=== PATIENT | male | born 1980 | race Two or more races ===

== ENCOUNTER 2018-06-02 00:40 | Emergency (ER) | payer OTHER ==
[2018-06-02 01:18] VITALS: BP 121/77; PULSE 81; TEMP 99; BMI 45.3
--- NOTE | 2018-06-02 01:29 | PDOC ---
History of Present Illness - General Chief Complaint: Diarrhea Stated Complaint: ABDOMINAL PAIN Time Seen by Provider: 06/02/18 01:28 History Source: Patient Exam Limitations: No Limitations - History of Present Illness Initial Comments: 06/02/18 01:52 38 year old male with PMH HTN, DM BIBA to ED for generalized abdominal pain. He stated while lying down in bed around 1130 PM he felt 9/10 abdominal pain, nonradiating, no alleviating or aggravating factors. He stated his pain was associated with 1 episode of diarrhea, loose and watery, as well as nausea. He stated the pain self resolved once arriving to the Emergency Department. He denied fever, chills, vomiting, chest pain, shortness of breath, cough, blood in stool. Past History - Past Medical History Allergies/Adverse Reactions: Allergies Allergy/AdvReac Type Severity Reaction Status Date / Time No Known Allergies Allergy Verified 06/02/18 01:18 Home Medications: Ambulatory Orders Amlodipine Besylate [Norvasc -] 5 mg PO DAILY #10 tablet 04/19/16 Ibuprofen [Motrin -] 600 mg PO TID #21 tablet 04/19/16 Ondansetron [Zofran -] 4 mg PO BID #14 tablet 04/19/16 metFORMIN HCL [Glucophage -] 500 mg PO BID #14 tablet 04/19/16 COPD: No Diabetes: Yes HTN: Yes Hypercholesterolemia: Yes - Suicide/Smoking/Psychosocial Hx Smoking History: Never smoked Have you smoked in the past 12 months: No Information on smoking cessation initiated: No Hx Alcohol Use: No Drug/Substance Use Hx: No Substance Use Type: None Review of Systems - Review of Systems Able to Perform ROS?: Yes Constitutional: No: Chills, Fever HEENTM: No: Ear Pain, Throat Pain Respiratory: No: Cough, Shortness of Breath Cardiac (ROS): No: Chest Pain, Palpitations ABD/GI: Yes: Diarrhea, Nausea. No: Rectal Bleeding, Vomiting : No: Dysuria, Hematuria Neurological: No: Headache, Numbness, Tingling, Weakness *Physical Exam - Vital Signs Last Vital Signs Temp Pulse Resp BP Pulse Ox 99.0 F 81 19 121/77 97 06/02/18 00:40 06/02/18 00:40 06/02/18 00:40 06/02/18 00:40 06/02/18 00:40 - Physical Exam Comments: 06/02/18 01:57 Constitutional: well developed, well nourished. HEENT: head is normocephalic, atraumatic. EOMI. PERRLA. Neck: supple. full ROM. Heart: regular rhythm. no murmurs. Lungs: clear to auscultation bilaterally. Abdomen: soft, nontender. normal bowel sounds. no rebound, no guarding. Extremities: peripheral pulses intact and equal. Neurological: CN2-12 grossly intact. Moves all four extremities. Psych: awake, alert, orientedx3. follows commands. answers questions appropriately. Medical Decision Making - Medical Decision Making 06/02/18 01:58 38 year old male with PMH HTN, DM BIBA to ED for abdominal pain associated with nausea and 1 episode of diarrhea that self resovled by time the patient arrived to the ED. Initial Vital Signs Temp Pulse Resp BP Pulse Ox 99.0 F 81 19 121/77 97 06/02/18 00:40 06/02/18 00:40 06/02/18 00:40 06/02/18 00:40 06/02/18 00:40 Afebrile. No tachycardia. No tachypnea. No hypotension. No hypoxia on room air. Abdominal examination - soft and nontender. no rebound. no guarding. No imaging or lab work indicated at this time. Pt informed of return precautions. Pt informed to follow up with PCP. Pt will be discharged. *DC/Admit/Observation/Transfer Diagnosis at time of Disposition: Abdominal pain - Discharge Dispostion Disposition: HOME Condition at time of disposition: Stable Decision to Admit order: No - Referrals - Patient Instructions Printed Discharge Instructions: DI for Abdominal Pain-Adult Additional Instructions: You were seen today for abdominal pain that resolved on its own. Your examination was normal. At this time you do not need imaging or lab work. Return to the Emergency Department for increasing pain, vomiting, pain moving to the right lower part of your abdomen, blood in stool, fever, chest pain, shortness of breath, lightheadedness like you may pass out, or any other new, worsening or concerning symptoms. Follow up with your primary care doctor in 1- 2 days, call their office in the morning and make an appointment for as soon as available. Your care is not complete until you follow up. - Post Discharge Activity Forms/Work/School Notes: Back to Work
== END 2018-06-02 02:11 | disposition home or self-care (01) ==
LOC: JER 00:40
DX: R10.84 Generalized abdominal pain (principal); I10 Essential (primary) hypertension; E11.9 Type 2 diabetes mellitus without complications; Z79.84 Long term (current) use of oral hypoglycemic drugs; E78.00 Pure hypercholesterolemia, unspecified
CPT/HCPCS: 99281-25

== ENCOUNTER 2018-07-19 23:17 | Emergency (ER) | payer OTHER ==
[2018-07-19 23:27] VITALS: BP 156/82; PULSE 140; TEMP 98.9; BMI 41.1
--- NOTE | 2018-07-19 23:54 | PDOC ---
History of Present Illness <Rosenda Gould - Last Filed: 07/20/18 03:16> - History of Present Illness Initial Comments: 07/19/18 23:53 Mr. Paz is a 38 yo male w/ pmh of HTN, HLD, DM who presents for evaluation of 2-3 day history of body aches, headache, fever, productive brown cough, and chills. Patient reports his was sick with similar symptoms 3 days ago. The patient denies chest pain, shortness of breath, and dizziness. Denies nausea , vomit, diarrhea and constipation. Denies dysuria, frequency, urgency and hematuria. <Bam Copeland - Last Filed: 07/20/18 03:23> - General Chief Complaint: Cold Symptoms Stated Complaint: SICK Time Seen by Provider: 07/19/18 23:53 Past History <Rosenda Gould - Last Filed: 07/20/18 03:16> - Past Medical History COPD: No Diabetes: Yes HTN: Yes Hypercholesterolemia: Yes - Immunization History Immunization Up to Date: Yes - Suicide/Smoking/Psychosocial Hx Smoking History: Never smoked Have you smoked in the past 12 months: No Information on smoking cessation initiated: No Hx Alcohol Use: No Drug/Substance Use Hx: No Substance Use Type: None <Bam Copeland - Last Filed: 07/20/18 03:23> - Past Medical History Allergies/Adverse Reactions: Allergies Allergy/AdvReac Type Severity Reaction Status Date / Time No Known Allergies Allergy Verified 07/19/18 23:26 Home Medications: Ambulatory Orders Amlodipine Besylate [Norvasc -] 5 mg PO DAILY #10 tablet 04/19/16 Ibuprofen [Motrin -] 600 mg PO TID #21 tablet 04/19/16 Ondansetron [Zofran -] 4 mg PO BID #14 tablet 04/19/16 metFORMIN HCL [Glucophage -] 500 mg PO BID #14 tablet 04/19/16 Oseltamivir Phosphate [Tamiflu -] 75 mg PO DAILY #10 capsule 07/20/18 Review of Systems - Review of Systems Comments:: 07/19/18 23:53 GENERAL/CONSTITUTIONAL: +Fever/chills as described with body aches. No weakness. HEAD, EYES, EARS, NOSE AND THROAT: No change in vision. No ear pain or discharge. No sore throat. CARDIOVASCULAR: No chest pain or shortness of breath RESPIRATORY: +Cough productive of brown sputum. No wheezing, or hemoptysis. GASTROINTESTINAL: No nausea, vomiting, diarrhea or constipation. GENITOURINARY: No dysuria, frequency, or change in urination. MUSCULOSKELETAL: No joint or muscle swelling or pain. No neck or back pain. SKIN: No rash NEUROLOGIC: No headache, vertigo, loss of consciousness, or change in strength/ sensation. ENDOCRINE: No increased thirst. No abnormal weight change HEMATOLOGIC/LYMPHATIC: No anemia, easy bleeding, or history of blood clots. ALLERGIC/IMMUNOLOGIC: No hives or skin allergy. <Bam Copeland - Last Filed: 07/20/18 03:23> *Physical Exam - Vital Signs Last Vital Signs Temp Pulse Resp BP Pulse Ox 98.9 F 140 H 16 156/82 96 07/19/18 23:24 07/19/18 23:24 07/19/18 23:24 07/19/18 23:24 07/19/18 23:24 <Rosenda Gould - Last Filed: 07/20/18 03:16> - Vital Signs Last Vital Signs Temp Pulse Resp BP Pulse Ox 98.9 F 140 H 16 156/82 96 07/19/18 23:24 07/19/18 23:24 07/19/18 23:24 07/19/18 23:24 07/19/18 23:24 - Physical Exam Comments: 07/19/18 23:53 GENERAL: +Patient obese. Awake, alert, and fully oriented, in no acute distress HEAD: No signs of trauma, normocephalic, atraumatic EYES: PERRLA, EOMI, sclera anicteric, conjunctiva clear ENT: Auricles normal inspection, hearing grossly normal, nares patent, oropharynx clear without exudates. Moist mucosa NECK: Normal ROM, supple, no lymphadenopathy, JVD, or masses LUNGS: No distress, speaks full sentences, clear to auscultation bilaterally HEART: Regular rate and rhythm, normal S1 and S2, no murmurs, rubs or gallops, peripheral pulses normal and equal bilaterally. ABDOMEN: Soft, nontender, normoactive bowel sounds. No guarding, no rebound. No masses EXTREMITIES: Normal inspection, Normal range of motion, no edema. No clubbing or cyanosis. NEUROLOGICAL: Cranial nerves II through XII grossly intact. Normal speech, normal gait, no focal sensorimotor deficits SKIN: Warm, Dry, normal turgor, no rashes or lesions noted. <Bam Copeland - Last Filed: 07/20/18 03:23> Moderate Sedation - Procedure Monitoring Vital Signs: Procedure Monitoring Vital Signs Temperature 98.9 F 07/19/18 23:24 Pulse Rate 140 H 07/19/18 23:24 Respiratory Rate 16 07/19/18 23:24 Blood Pressure 156/82 07/19/18 23:24 O2 Sat by Pulse Oximetry (%) 96 07/19/18 23:24 <Rosenda Gould - Last Filed: 07/20/18 03:16> - Procedure Monitoring Vital Signs: Procedure Monitoring Vital Signs Temperature 98.9 F 07/19/18 23:24 Pulse Rate 140 H 07/19/18 23:24 Respiratory Rate 16 07/19/18 23:24 Blood Pressure 156/82 07/19/18 23:24 O2 Sat by Pulse Oximetry (%) 96 07/19/18 23:24 <Bam Copeland - Last Filed: 07/20/18 03:23> ED Treatment Course - LABORATORY CBC & Chemistry Diagram: 07/20/18 00:40 07/20/18 00:40 - ADDITIONAL ORDERS Additional order review: Laboratory Results 07/20/18 07/20/18 01:53 00:40 Sodium 134 L Potassium 4.0 Chloride 101 Carbon Dioxide 23 Anion Gap 10 BUN 11 Creatinine 1.1 Creat Clearance w eGFR > 60 Random Glucose 404 H* Calcium 7.8 L Total Bilirubin 0.6 AST 41 H ALT 82 H Alkaline Phosphatase 141 H Total Protein 7.2 Albumin 3.6 Urine Color Straw Urine Appearance Clear Urine pH 7.0 Ur Specific [place] 1.028 Urine Protein 2+ H Urine Glucose (UA) 3+ H Urine Ketones Negative Urine Blood Negative Urine Nitrite Negative Urine Bilirubin Negative Urine Urobilinogen 2.0 Ur Leukocyte Esterase Negative Urine WBC (Auto) <1 Urine RBC (Auto) 1 Urine Mucus Rare 07/20/18 00:40 RBC 4.96 MCV 88.4 MCHC 36.4 H RDW 13.0 MPV 9.3 Neutrophils % 76.8 Lymphocytes % 15.4 D Monocytes % 6.9 Eosinophils % 0.3 D Basophils % 0.6 - Medications Given in the ED: ED Medications Discontinued Medications Generic Name Dose Route Start Last Admin Trade Name Cherelle PRN Reason Stop Dose Admin Acetaminophen 1,000 mg 07/20/18 01:43 07/20/18 02:01 Ofirmev Injection - IVPB 07/20/18 01:44 1,000 mg ONCE ONE Administration Sodium Chloride 1,000 mls @ 1,000 mls/hr 07/20/18 00:00 07/20/18 00:57 Normal Saline - IV 07/20/18 00:59 1,000 mls/hr ASDIR STA Administration Insulin Human Regular 6 units 07/20/18 01:31 07/20/18 02:01 Novolin R Vial *For Ivpush Or Iv Drip Only* IVPUSH 07/20/18 01:32 6 units ONCE ONE Administration Metoclopramide HCl 10 mg 07/20/18 00:00 07/20/18 00:57 Reglan Injection - IVPUSH 07/20/18 00:01 10 mg ONCE ONE Administration Oseltamivir Phosphate 75 mg 07/20/18 01:27 07/20/18 02:01 Tamiflu - PO 07/20/18 01:28 75 mg ONCE ONE Administration Sodium Chloride 1,000 ml 07/20/18 01:44 07/20/18 02:02 Normal Saline - IV 07/20/18 01:45 1,000 ml ONCE ONE Administration <Rosenda Gould - Last Filed: 07/20/18 03:16> - LABORATORY CBC & Chemistry Diagram: 07/20/18 00:40 07/20/18 00:40 <Bam Copeland - Last Filed: 07/20/18 03:23> Medical Decision Making - Medical Decision Making 07/20/18 03:19 Mr. Paz is a 38 yo male w/ pmh as described who presents for evaluation of likely viral symptoms as described. Patient workup started with CBC/CMP/flu for evaluation of illness. Patient found to be flu positive with elevated BGM as below. Patient given fluids, tamiflu, and insulin with repeat BGM decreased appropriately. Patient improved and discharging to home for further outpatient follow-up. Laboratory Results - last 24 hr 07/20/18 07/20/18 07/20/18 00:40 00:40 00:45 WBC 8.7 RBC 4.96 Hgb 15.9 Hct 43.8 MCV 88.4 MCH 32.1 MCHC 36.4 H RDW 13.0 Plt Count 235 MPV 9.3 Absolute Neuts (auto) 6.7 Neutrophils % 76.8 Lymphocytes % 15.4 D Monocytes % 6.9 Eosinophils % 0.3 D Basophils % 0.6 Nucleated RBC % 0 Sodium 134 L Potassium 4.0 Chloride 101 Carbon Dioxide 23 Anion Gap 10 BUN 11 Creatinine 1.1 Creat Clearance w eGFR > 60 Random Glucose 404 H* Calcium 7.8 L Total Bilirubin 0.6 AST 41 H ALT 82 H Alkaline Phosphatase 141 H Total Protein 7.2 Albumin 3.6 Urine Color Urine Appearance Urine pH Ur Specific [place] Urine Protein Urine Glucose (UA) Urine Ketones Urine Blood Urine Nitrite Urine Bilirubin Urine Urobilinogen Ur Leukocyte Esterase Urine WBC (Auto) Urine RBC (Auto) Urine Mucus Influenza A (Rapid) Positive A Influenza B (Rapid) Negative 07/20/18 01:53 WBC RBC Hgb Hct MCV MCH MCHC RDW Plt Count MPV Absolute Neuts (auto) Neutrophils % Lymphocytes % Monocytes % Eosinophils % Basophils % Nucleated RBC % Sodium Potassium Chloride Carbon Dioxide Anion Gap BUN Creatinine Creat Clearance w eGFR Random Glucose Calcium Total Bilirubin AST ALT Alkaline Phosphatase Total Protein Albumin Urine Color Straw Urine Appearance Clear Urine pH 7.0 Ur Specific [place] 1.028 Urine Protein 2+ H Urine Glucose (UA) 3+ H Urine Ketones Negative Urine Blood Negative Urine Nitrite Negative Urine Bilirubin Negative Urine Urobilinogen 2.0 Ur Leukocyte Esterase Negative Urine WBC (Auto) <1 Urine RBC (Auto) 1 Urine Mucus Rare Influenza A (Rapid) Influenza B (Rapid) 07/20/18 03:21 <Bam Copeland - Last Filed: 07/20/18 03:23> *DC/Admit/Observation/Transfer - Discharge Dispostion Decision to Admit order: No <Rosenda Gould - Last Filed: 07/20/18 03:16> <Bam Copeland - Last Filed: 07/20/18 03:23> Diagnosis at time of Disposition: Influenza, Influenza A - Discharge Dispostion Disposition: HOME Condition at time of disposition: Improved - Prescriptions Prescriptions: Oseltamivir Phosphate [Tamiflu -] 75 mg PO DAILY #10 capsule - Referrals Referrals: Wang Zhao MD [Primary Care Provider] - - Patient Instructions Printed Discharge Instructions: Influenza Additional Instructions: You were evaluated today in the ER for your symptoms and found to have flu type A. A prescription has been called to your pharmacy. Take all medications as proscribed. Follow-up with primary care provider for further evaluation later this week. Return to ER if any further concerning symptoms. - Post Discharge Activity Forms/Work/School Notes: Back to Work
[2018-07-20] MEDS ORDERED: SODIUM CHLORIDE 1,000 ML IV STA
[2018-07-20] MEDS ORDERED: METOCLOPRAMIDE HCL INJECTION 10 MG/2 ML VIAL IVPUSH ONE
[2018-07-20] MEDS ORDERED: METOCLOPRAMIDE HCL INJECTION 10 MG/2 ML VIAL ONE (00:55)
[2018-07-20 01:04] LABS: BASO % 0.6 % (0-2.0); EOS % 0.3 % (0-4.5); HEMATOCRIT 43.8 % (35.4-49); HEMOGLOBIN 15.9 GM/dL (11.7-16.9); LYMPH % 15.4 % (8-40); MCH 32.1 pg (25.7-33.7); MCHC 36.4 g/dl (32.0-35.9); MEAN CELL VOLUME 88.4 fl (80-96); MEAN PLT VOLUME 9.3 fl (7.5-11.1); MONO % 6.9 % (3.8-10.2); NEUT % 76.8 % (42.8-82.8); PLATELET COUNT 235 K/MM3 (134-434); RBC 4.96 M/mm3 (4.00-5.60); WHITE BLOOD COUNT 8.7 K/mm3 (4.0-10.0)
--- NOTE | 2018-07-20 01:25 | PDOC ---
Attending Attestation - HPI HPI: 07/20/18 01:31 The patient is a 38 year old male with a significant past medical history of diabetes, HTN and HLD who presents to the ED with cold like symptoms for several days. Patient reports several days of body aches and headaches. He states he also developed nausea and vomiting. Patient notes his also has similar symptoms at home. Denies fever or chills. Denies abdominal pain or diarrhea. Denies chest pain or shortness of breath. Denies any other symptoms. <Stuart Miller - Last Filed: 07/20/18 01:30> - Resident Resident Name: Bam Copeland - ED Attending Attestation I have performed the following: I have examined & evaluated the patient, The case was reviewed & discussed with the resident, I agree w/resident's findings & plan - Physicial Exam PE: 07/20/18 01:47 Agree with resident exam. Pt has a fever and he is dehydrated. He has been noncomplaint with his DM meds, as he states that it has been making him feel nauseous, so he has been noncomplaint with it. - Medical Decision Making 07/20/18 01:30 Pt is tachy and he will be hydrated after 1L HR is 128BPM; down from the 140 that he came in with. 07/20/18 01:48 He will be given another L and orfirmev. UA pending, so that we can look for ketone 07/20/18 01:49 CXR normal appearance Pt has Flu A 07/20/18 03:14 Pt is sleeping comfortably; HR is 85; afebrile. HGe received the 2nd L bolus. After repeat FS he will go home. Acetone negative <Rosenda Gould - Last Filed: 07/20/18 03:15> Attestations - Attestations 07/20/18 01:31 Documentation prepared by Stuart Miller, acting as medical billing instructor for Rosenda Gould MD <Stuart Miller - Last Filed: 07/20/18 01:30>
[2018-07-20] MEDS ORDERED: OSELTAMIVIR PHOSPHATE 75 MG CAPSULE PO ONE (01:27)
[2018-07-20 01:29] LABS: ALBUMIN 3.6 g/dl (3.4-5.0); ALK PHOS 141 U/L (45-117); ANION GAP 10 MMOL/L (8-16); BILIRUBIN,TOTAL 0.6 mg/dL (0.2-1); BLOOD UREA NITROGEN 11 mg/dL (7-18); CALCIUM 7.8 mg/dL (8.5-10.1); CHLORIDE 101 mmol/L (98-107); CO2 23 mmol/L (21-32); CREATININE 1.1 mg/dL (0.55-1.3); SGOT/AST 41 U/L (15-37); SGPT/ALT 82 U/L (13-61); SODIUM 134 mmol/L (136-145); TOT PROT 7.2 g/dl (6.4-8.2)
[2018-07-20 01:30] LABS: GLUCOSE,RANDOM 404 mg/dL (74-106)
[2018-07-20] MEDS ORDERED: INSULIN REGULAR HUMAN 100 UNITS/ML *VIAL IVPUSH ONE (01:31)
[2018-07-20] MEDS ORDERED: ACETAMINOPHEN 1000 MG/100 ML VIAL (NON FORMULARY) IVPB ONE (01:43)
[2018-07-20] MEDS ORDERED: SODIUM CHLORIDE 0.9% 500 ML INFUS.BAG IV ONE (01:44)
[2018-07-20] MEDS ORDERED: ACETAMINOPHEN INJECTION 100 ML IVPB ONE (01:51)
[2018-07-20] MEDS ORDERED: OSELTAMIVIR PHOSPHATE 75 MG CAPSULE ONE (01:51)
[2018-07-20] MEDS ORDERED: INSULIN REGULAR HUMAN 100 UNITS/ML *VIAL ONE (01:52)
[2018-07-20 02:17] LABS: URINE APPEARANCE CLEAR; URINE BILIRUBIN NEGATIVE (<2.0 mg/dL); URINE COLOR STRAW; URINE GLUCOSE (UA) 3+ (NEGATIVE); URINE KETONE NEGATIVE (NEGATIVE); URINE LEUK ESTERASE NEGATIVE (NEGATIVE); URINE NITRITE NEGATIVE (NEGATIVE); URINE PROTEIN 2+ (NEGATIVE)
[2018-07-20 02:35] LABS: URINE MUCUS RARE
== END 2018-07-20 03:43 | disposition home or self-care (01) ==
LOC: JER 23:17
PROC: 3E033NZ Introduction of Analgesics, Hypnotics, Sedatives into Peripheral Vein, Percutaneous Approach (ICD-10-PCS; principal; 2018-07-19)
PROC: 3E033VG Introduction of Insulin into Peripheral Vein, Percutaneous Approach (ICD-10-PCS; 2018-07-19)
PROC: 3E033GC Introduction of Other Therapeutic Substance into Peripheral Vein, Percutaneous Approach (ICD-10-PCS; 2018-07-19)
PROC: 3E0337Z Introduction of Electrolytic and Water Balance Substance into Peripheral Vein, Percutaneous Approach (ICD-10-PCS; 2018-07-19)
DX: J09.X2 Influenza due to identified novel influenza A virus with other respiratory manifestations (principal); I10 Essential (primary) hypertension; E78.5 Hyperlipidemia, unspecified; E11.9 Type 2 diabetes mellitus without complications
CPT/HCPCS: 36415; 71046-TC-FY; 80053; 81003; 81015; 82962; 85025; 87804; 99281-25; J0131; J7030

== ENCOUNTER 2019-07-13 15:02 | Emergency (ER) | payer OTHER ==
[2019-07-13 15:33] VITALS: TEMP 98.2; BMI 40.3
--- NOTE | 2019-07-13 15:49 | PDOC ---
History of Present Illness - General Chief Complaint: Pain Stated Complaint: STOMACH PAIN Time Seen by Provider: 07/13/19 15:48 - History of Present Illness Initial Comments: 07/13/19 15:49 39 yo M NIDDM HTN and HLD, not taking any medications, presenting with epigastric abdominal pain. States that it is 10/10, started this morning around 0900 after eating a roldan, egg, and cheese sandwich. States that he has never had pain like this before. Notes that he has been drinking more alcohol than normal over the past few months, but states that this is only 4-5 drinks per month. Denies CP, SOB, fevers/chills, constipation/diarrhea. Endorses nausea with one episode of nbnb vomiting at home, had another episode in the ED. Past History - Past Medical History Allergies/Adverse Reactions: Allergies Allergy/AdvReac Type Severity Reaction Status Date / Time No Known Allergies Allergy Verified 07/13/19 15:30 Home Medications: Ambulatory Orders Famotidine [Pepcid] 20 mg PO BID #12 tablet 07/13/19 COPD: No Diabetes: Yes HTN: Yes Hypercholesterolemia: Yes - Immunization History Immunization Up to Date: Yes - Psycho Social/Smoking Cessation Hx Smoking History: Never smoked Have you smoked in the past 12 months: No Information on smoking cessation initiated: No Hx Alcohol Use: No Drug/Substance Use Hx: No Substance Use Type: None Review of Systems - Review of Systems Comments:: 07/13/19 16:46 GENERAL/CONSTITUTIONAL: No fever or chills. No weakness. HEAD, EYES, EARS, NOSE AND THROAT: No change in vision. No ear pain or discharge. No sore throat. CARDIOVASCULAR: No chest pain or shortness of breath. RESPIRATORY: No cough, wheezing, or hemoptysis. GASTROINTESTINAL: Nausea with vomiting. No diarrhea or constipation. Epigastric abdominal pain. GENITOURINARY: No dysuria, frequency, or change in urination. MUSCULOSKELETAL: No joint or muscle swelling or pain. No neck or back pain. SKIN: No rash NEUROLOGIC: No headache, vertigo, loss of consciousness, or change in strength/ sensation. ENDOCRINE: No increased thirst. No abnormal weight change. HEMATOLOGIC/LYMPHATIC: No anemia, easy bleeding, or history of blood clots. ALLERGIC/IMMUNOLOGIC: No hives or skin allergy *Physical Exam - Vital Signs Last Vital Signs Temp Pulse Resp BP Pulse Ox 98.2 F 82 18 97/79 100 07/13/19 15:30 07/13/19 15:30 07/13/19 15:30 07/13/19 15:30 07/13/19 15:30 - Physical Exam 07/13/19 16:47 Gen: well-developed, well-nourished, in distress Neuro: AAOX4, CN II-XII intact, FTN intact, EOMI, PERRLA, 5/5 strength, SILT HEENT: atraumatic, normocephalic, dry mucous membranes Neck: trachea midline, supple CV: regular rate, regular rhythm, no murmurs, rubs, or gallops Pulm: CTA b/l, no wheezing Abd: soft, non-distended, epigastric tenderness, negative Rodriguez's MSK: full ROM, intact pulses Extr: no edema, no deformities Skin: warm, dry ED Treatment Course - LABORATORY CBC & Chemistry Diagram: 07/13/19 16:16 07/13/19 16:16 Medical Decision Making - Medical Decision Making 07/13/19 15:42 Concern for pancreatitis v cholecystitis v gastritis. - CBC, CMP - EKG, trop, CXR - lipase - Zofran, Pepcid, Ofirmev - RUQ US 07/13/19 16:42 EKG normal sinus with sinus arrhythmia at 80 bpm, possible LVH. 07/13/19 17:19 WBC 13.7, lipase 88. 07/13/19 17:59 CXR unchanged from prior 07/13/19 18:[address] Vo. Discharge - Discharge Information Problems reviewed: Yes Clinical Impression/Diagnosis: Gastritis Qualifiers: Gastritis type: unspecified gastritis Chronicity: acute Gastritis bleeding: presence of bleeding unspecified Qualified Code(s): K29.00 - Acute gastritis without bleeding Condition: Stable Disposition: HOME - Additional Discharge Information Prescriptions: Famotidine [Pepcid] 20 mg PO BID #12 tablet - Follow up/Referral Referrals: [facility] [place] [Provider Group] Leland Noland MD [Staff Physician] - - Patient Discharge Instructions Patient Printed Discharge Instructions: DI for Gastritis Additional Instructions: Usted fue evaluada por dolor de estomago. Michelle niveles de raisa estaban normales. Campos sonografia estaba normal. Es posible que campos dolor fue causado por un gastritis jeanne. Por favor ve a campos doctor de cabezera lo mas pronto posible , en 2-3 [place]. Tambien es importante que usted ve a un gastroenterologo - un doctor de los intestinos. Es posible que van a querer un endoscopia. Estamos dando un referido para un gastroenterologo. Hermann saulo para verlo lo mas pronto posible. Print Language: SPA - Post Discharge Activity
[2019-07-13] MEDS ORDERED: FAMOTIDINE 20 MG/50 ML IVPB 20 MG/50 ML MG IVPB ONE ×2 (15:58→16:15)
[2019-07-13] MEDS ORDERED: ONDANSETRON 4 MG/2 ML VIAL IVPUSH ONE (15:58)
[2019-07-13] MEDS ORDERED: SODIUM CHLORIDE 0.9% 500 ML INFUS.BAG IV ONE ×2 (15:58→16:42)
[2019-07-13] MEDS ORDERED: ONDANSETRON 4 MG/2 ML VIAL ONE (16:15)
--- NOTE | 2019-07-13 16:32 | PDOC ---
Documentation entered by Stuart Miller SCRIBE, acting as scribe for Nancy Harper DO. Nancy Harper DO: This documentation has been prepared by the Angela yi Andrys, SCRIBE, under my direction and personally reviewed by me in its entirety. I confirm that the documentation accurately reflects all work, treatment, procedures, and medical decision making performed by me. Attending Attestation - Resident Resident Name: Maggi Bruce - ED Attending Attestation I have performed the following: I have examined & evaluated the patient, The case was reviewed & discussed with the resident, I agree w/resident's findings & plan, Exceptions are as noted - HPI HPI: 07/13/19 16:18 The patient is a 39 year old male with significant past medical history of HTN, HLD and DM (non compliant with medication) who presents to the ED with epigastric pain since earlier today. Patient reports a sudden onset of epigastric pain around 9am this morning after eating a roldan, egg, and cheese sandwich. Patient also reports 1 episode of vomiting earlier today. Patient reports increased intake of alcohol recently. Denies similar symptoms in the past. Denies chest pain or shortness of breath. Denies nausea or diarrhea. Denies any other symptoms. - Physicial Exam PE: 07/13/19 16:18 Constitutional: + Obese. Awake, alert, oriented. No acute distress. Head: Normocephalic. Atraumatic Eyes: PERRL. EOMI. Conjunctivae are not pale. ENT: Mucous membranes are moist and intact. Posterior pharynx without exudates or erythema. Uvula midline. Neck: Supple. Full ROM. No lymphadenopathy. Cardiovascular: Regular rate. Regular rhythm. S1, S2 regular. Distal pulses are 2+ and symmetric. Pulmonary/Chest: No evidence of respiratory distress. Clear to auscultation bilaterally No wheezing, rales or rhonchi. Abdominal: + Actively vomiting bilious vomit. Periumbilical epigastric tenderness. Soft and non-distended. No rebound, guarding or rigidity. No organomegaly. No palpable masses. Good bowel sounds. No [place] sign. Back: No CVA tenderness. Musculoskeletal: No edema. No cyanosis. No clubbing. Full range of motion in all extremities. Nocalf tenderness. Radial/pedal pulses are intact and 2+ bilaterally Skin: Skin is warm and dry. No petechiae. No purpura. Neurological: Alert and oriented to person, place, and time. Cranial nerves II -XII are grossly intact. Normal speech. Strength is grossly symmetric. No sensory deficits. Psychiatric: Good eye contact. Normal interaction, affect and behavior. - Medical Decision Making 07/13/19 16:28 a/p: 39yo male with hx of htn, hld, dm and recent etoh use with n/v and epigastric abd pain -pt with active biliary vomiting during exam -epigastric ttp -concern for gallstones- bedside ultrasound with the resident shows sludge, no pericholecystic fluid, no gbw thickening -concern for pancreatitis, gi virus, gastritis, pud -less suspicion for acs- no cp/sob -will send labs, ivf hydraiton, zofran, formal ultrasound, lipase -will monitor and reassess 07/13/19 16:45 labs pending pt pending ultrasound will monitor
[2019-07-13] MEDS ORDERED: ACETAMINOPHEN 1000 MG/100 ML VIAL (NON FORMULARY) IVPB ONE (16:41)
[2019-07-13 16:50] LABS: BASO % 0.5 % (0-2.0); EOS % 0.4 % (0-4.5); HEMATOCRIT 47.6 % (35.4-49); HEMOGLOBIN 16.1 GM/dL (11.7-16.9); LYMPH % 11.9 % (8-40); MCH 30.8 pg (25.7-33.7); MCHC 33.8 g/dl (32.0-35.9); MEAN PLT VOLUME 9.2 fl (7.5-11.1); MONO % 3.2 % (3.8-10.2); PLATELET COUNT 307 K/MM3 (134-434); RBC 5.24 M/mm3 (4.00-5.60); RDW 13.2 % (11.9-15.9); WHITE BLOOD COUNT 13.7 K/mm3 (4.0-10.0)
[2019-07-13] MEDS ORDERED: ACETAMINOPHEN INJECTION 100 ML IVPB ONE (17:03)
[2019-07-13 17:26] LABS: ALBUMIN 4.2 g/dl (3.4-5.0); ALK PHOS 129 U/L (45-117); ANION GAP 8 MMOL/L (8-16); BILIRUBIN,TOTAL 0.7 mg/dL (0.2-1); BLOOD UREA NITROGEN 17.7 mg/dL (7-18); CHLORIDE 102 mmol/L (98-107); CO2 26 mmol/L (21-32); CREATININE 0.8 mg/dL (0.55-1.3); GLUCOSE,RANDOM 255 mg/dL (74-106); POTASSIUM 3.7 mmol/L (3.5-5.1); SGOT/AST 23 U/L (15-37); SGPT/ALT 54 U/L (13-61); SODIUM 136 mmol/L (136-145); TOT PROT 8.1 g/dl (6.4-8.2)
[2019-07-13] MEDS ORDERED: KETOROLAC TROMETHAMINE 30 MG/1 ML VIAL IVPUSH ONE (18:04)
[2019-07-13] MEDS ORDERED: KETOROLAC TROMETHAMINE 15 MG/ML VIAL ONE (18:14)
--- NOTE | 2019-07-13 19:34 | PDOC ---
*Physical Exam - Vital Signs Last Vital Signs Temp Pulse Resp BP Pulse Ox 98.2 F 89 20 161/92 98 07/13/19 15:30 07/13/19 18:00 07/13/19 18:00 07/13/19 18:00 07/13/19 18:00 ED Treatment Course - LABORATORY CBC & Chemistry Diagram: 07/13/19 16:16 07/13/19 16:16 - ADDITIONAL ORDERS Additional order review: Laboratory Results 07/13/19 07/13/19 07/13/19 16:54 16:16 16:16 Sodium 136 Potassium 3.7 Chloride 102 Carbon Dioxide 26 Anion Gap 8 BUN 17.7 Creatinine 0.8 Est GFR (CKD-EPI)AfAm 131.34 Est GFR (CKD-EPI)NonAf 113.32 POC Glucometer 241 Random Glucose 255 H Calcium 9.0 Total Bilirubin 0.7 AST 23 ALT 54 Alkaline Phosphatase 129 H Creatine Kinase 116 Troponin I < 0.02 Total Protein 8.1 Albumin 4.2 Lipase 88 07/13/19 07/13/19 16:54 16:16 RBC 5.24 MCV 91.0 MCHC 33.8 RDW 13.2 MPV 9.2 Neutrophils % 84.0 H Lymphocytes % 11.9 D Monocytes % 3.2 L Eosinophils % 0.4 Basophils % 0.5 POC Glucometer 241 - Medications Given in the ED: ED Medications Discontinued Medications Generic Name Dose Route Start Last Admin Trade Name Cherelle PRN Reason Stop Dose Admin Acetaminophen 1,000 mg 07/13/19 16:41 07/13/19 17:02 Ofirmev Injection - IVPB 07/13/19 16:42 1,000 mg ONCE ONE Administration Famotidine/Sodium Chloride 20 mg in 50 mls @ 100 mls/hr 07/13/19 15:58 16:05 Pepcid 20 Mg Premixed Ivpb - IVPB 07/13/19 16:27 100 mls/hr ONCE ONE Administration Ketorolac Tromethamine 15 mg 07/13/19 18:04 07/13/19 18:19 Toradol Injection - IVPUSH 07/13/19 18:05 15 mg ONCE ONE Administration Ondansetron HCl 4 mg 07/13/19 15:58 07/13/19 16:05 Zofran Injection IVPUSH 07/13/19 15:59 4 mg NOW ONE Administration Sodium Chloride 1,000 ml 07/13/19 15:58 07/13/19 16:10 Normal Saline - IV 07/13/19 15:59 1,000 ml ONCE ONE Administration Sodium Chloride 1,000 ml 07/13/19 16:42 07/13/19 17:02 Normal Saline - IV 07/13/19 16:43 1,000 ml ONCE ONE Administration Medical Decision Making - Medical Decision Making 07/13/19 19:35 39M w/hx fatty liver, HTN, DM p/w acute onset epigastric abdominal pain and vomiting. Lipase normal, CBC, CMP largely wnl. Differential includes biliary colic, cholecystitis, gastritis. Pending: US imaging read Dispo: Pending --- US - negative, no stones or signs of cholecystitis. Plan for discharge with GI follow up, Discharge - Discharge Information Problems reviewed: Yes Clinical Impression/Diagnosis: Gastritis Qualifiers: Gastritis type: unspecified gastritis Chronicity: acute Gastritis bleeding: presence of bleeding unspecified Qualified Code(s): K29.00 - Acute gastritis without bleeding Condition: Stable Disposition: HOME - Admission No - Additional Discharge Information Prescriptions: Famotidine [Pepcid] 20 mg PO BID #12 tablet - Follow up/Referral Referrals: Leland Noland MD [Staff Physician] - [facility] [place] [facility] [place] [Provider Group] - Patient Discharge Instructions Patient Printed Discharge Instructions: DI for Gastritis Additional Instructions: Usted fue evaluada por dolor de estomago. Michelle niveles de raisa estaban normales. [place] sonografia estaba normal. Es posible que [place] dolor fue causado por un gastritis jeanne. Por favor ve a [place] doctor de cabezera lo mas pronto posible , en 2-3 canada. Tambien es importante que usted ve a un gastroenterologo - un doctor de los intestinos. Es posible que van a querer un endoscopia. Estamos dando un referido para un gastroenterologo. Hermann saulo para verlo lo mas pronto posible. Print Language: SPA - Post Discharge Activity
[2019-07-13 19:53] VITALS: BP 124/88; PULSE 105
--- NOTE | 2019-07-14 17:41 | EKG ---
Test Reason : Blood Pressure : / mmHG Vent. Rate : 080 BPM Atrial Rate : 080 BPM P-R Int : 168 ms QRS Dur : 108 ms QT Int : 362 ms P-R-T Axes : 018 -11 006 degrees QTc Int : 417 ms NORMAL SINUS RHYTHM WITH SINUS ARRHYTHMIA MODERATE VOLTAGE CRITERIA FOR LVH, MAY BE NORMAL VARIANT BORDERLINE ECG WHEN COMPARED WITH ECG OF 21-JUN-2017 23:45, NO SIGNIFICANT CHANGE WAS FOUND Confirmed by DEMOND IBRAHIM, LAURENT ([id number]) on 07/14/2019 5:41:02 PM Referred By: Confirmed By:LAURENT LAGOS MD
== END 2019-07-13 19:55 | disposition home or self-care (01) ==
LOC: JER 15:02
PROC: 3E0337Z Introduction of Electrolytic and Water Balance Substance into Peripheral Vein, Percutaneous Approach (ICD-10-PCS; principal; 2019-07-13)
PROC: 3E033GC Introduction of Other Therapeutic Substance into Peripheral Vein, Percutaneous Approach (ICD-10-PCS; 2019-07-13)
PROC: 3E0333Z Introduction of Anti-inflammatory into Peripheral Vein, Percutaneous Approach (ICD-10-PCS; 2019-07-13)
PROC: 3E033NZ Introduction of Analgesics, Hypnotics, Sedatives into Peripheral Vein, Percutaneous Approach (ICD-10-PCS; 2019-07-13)
DX: K29.00 Acute gastritis without bleeding (principal); I10 Essential (primary) hypertension; E78.00 Pure hypercholesterolemia, unspecified; E11.9 Type 2 diabetes mellitus without complications; E78.5 Hyperlipidemia, unspecified
CPT/HCPCS: 36415; 71046-TC-FY; 76705-TC; 80053; 82550; 82962; 83690; 84484; 85025; 93005; 93010; 99285-25; J0131

== ENCOUNTER 2020-04-19 09:46 | Emergency (ER) | payer OTHER ==
[2020-04-19 09:52] VITALS: BMI 44.2
--- OUTSIDE RECORDS SUMMARY | 2020-04-19 10:14 | XMS ---
:1980 Author Organization [facility] Care Team Providers Name Role Phone Menla, Tor Unavailable Unavailable Menla, Tor Unavailable Unavailable Menla, Tor Unavailable Unavailable Menla, Tor Unavailable Unavailable Menla, Tor Unavailable Unavailable Menla, Tor Unavailable Unavailable KAUR, MICHELLE Unavailable Unavailable Re-disclosure Warning The records that you are about to access may contain information from federally- assisted alcohol or drug abuse programs. If such information is present, then the following federally mandated warning applies: This information has been disclosed to you from records protected by federal confidentiality rules (42 CFR part 2). The federal rules prohibit you from making any further disclosure of this information unless further disclosure is expressly permitted by the written consent of the person to whom it pertains or as otherwise permitted by 42 CFR part 2. A general authorization for the release of medical or other information is NOT sufficient for this purpose. The Federal rules restrict any use of the information to criminally investigate or prosecute any alcohol or drug abuse patient.The records that you are about to access may contain highly sensitive health information, the redisclosure of which is protected by Article 27-F of the [facility] Public Health law. If you continue you may haveaccess to information: Regarding HIV / AIDS; Provided by facilities licensed or operated by the [facility] Office of Mental Health; or Provided by the [facility] Office for People With Developmental Disabilities. If such information is present, then the following [place] State mandated warning applies: This information has been disclosed to you from confidential records which are protected by state law. State law prohibits you from making any further disclosure of this information without the specific written consent of the person to whom it pertains, or as otherwise permitted by law. Any unauthorized further disclosure in violation of state law may result in a fine or care home sentence or both. A general authorization for the release of medical or other information is NOT sufficient authorization for further disclosure. Allergies and Adverse Reactions Type Description Substance Reaction Status Data Source(s ) Drug allergy Metformin HCl Metformin headache Active eCW3 ([facility]) Propensity to Propensity to Propensity to NEXTG EN ([facility] adverse reactions adverse reactions adverse reactions [facility] Medical (disorder) (disorder) (disorder) Center) Family History Family Member Family Member Family Member Date of Description Data Source(s) Name Gender Status Status Unknown Female Problem 11/29/2019 NEXTGEN ([facility] (finding) 12:00:00 AM [facility] EDT Center) Encounters Encounter Providers Location Date Indications Data Source(s ) Outpatient 03/08/2020 [facility] 03:25:00 Medical Center PM EDT Outpatient Attender: MICHELLE Hernandez 03/08/2020 [facility] COLTONAAdmitter: 03:06:00 Medical Ce nter MICHELLE PM EDT COLTONAReferrer: MICHELLE KAUR OutpatientOFFICE/ Attender: Tor [facility] 03/08/2020 NEX TGEN ([facility] OUTPATIENT VISIT, Menla 03:06:00 [facility] Medical [facility] PM EDT - Center) 03/08/2020 03:06:00 PM EDT Outpatient 03/08/2020 [facility] 12:00:00 Medical Center AM EDT Attender: [facility]S aint Menla 04:12:00 [facility]T - Center) 02/15/2020 04:12:00 PM EDT Attender: Tor [facility] 01/21/2020 NEXTGEN (S aint [place]la 03:14:00 [facility] PM EDT - Center) 01/21/2020 03:14:00 PM EDT Outpatient 01/20/2020 [facility] 12:34:00 Medical Center PM EDT Outpatient 01/20/2020 [facility] 12:00:00 Medical Center AM EDT Attender: Tor [address] [place] [address] 01/19/2020 NEXT (S aint Menla 02:09:00 [facility] EDT - Center) 01/19/2020 02:09:00 PM EDT Outpatient 12/21/2019 [facility] 12:14:00 [facility] PM EDT Outpatient Attender: MICHELLE Hernandez [facility] Medical Ce nter MICHELLE AM EDT MEJIAReferrer: MICHELLE KAUR OutpatientOFFICE/ Attender: Tor [facility] 12/21/2019 NEX TGEN ([facility] OUTPATIENT VISIT, Menla 11:21:00 [facility] EDT - Center) 12/21/2019 11:21:00 AM EDT Outpatient 12/21/2019 [facility] 12:00:00 [facility] AM EDT Outpatient Attender: MICHELLE Hernandez 12/07/2019 [facility] Chapeldmitter: 11:25:00 Medical Ce nter MICHELLE AM EDT MEJIAReferrer: MICHELLE KAUR OutpatientOFFICE/ Attender: Tor [address] [place] [address] 12/07/2019 NEX TGEN ([facility] OUTPATIENT VISIT, Menla 11:25:00 [facility] EDT - Center) 12/07/2019 11:25:00 AM EDT Outpatient 12/07/2019 [facility] 11:23:00 [facility] AM EDT Outpatient 12/07/2019 [facility] 12:00:00 [facility] AM EDT Outpatient 11/29/2019 [facility] 02:58:00 [facility] PM EDT Outpatient Attender: MICHELLE H 11/29[facility]00 Medical Ce nter MICHELLE AM EDT MEJIAReferrer: MICHELLE KAUR OutpatientOFFICE/ Attender: Tor [facility] 11/29/2019 NEX TGEN ([facility] OUTPATIENT VISIT, Menla 11:08:00 [facility] EDT - Center) 11/29/2019 11:08:00 AM EDT Outpatient 11/29/2019 [facility] 12:00:00 Medical [place] AM EDT Outpatient [facility] 04/21/2019 eCW3 ([facility] A[facility] 12:00:00 [facility]T - Care) 04/21/2019 12:00:00 AM EDT Outpatient [facility] 03/19/2019 eCW3 ([facility] 12:00:00 [facility]T - Care) 03/19/2019 12:00:00 AM EDT Outpatient [facility] 02/11/2019 eCW3 ([facility] 12:00:00 [facility] AM EDT - Care) 02/11/2019 12:00:00 AM EDT Outpatient [facility] 12/30/2018 eCW3 ([facility] 12:00:00 [facility] AM EDT - Care) 12/30/2018 12:00:00 AM EDT 12/18/2010 [facility] 12:00:00 [facility] AM EDT Immunizations Vaccine Date Status Description Data Source(s) As of March 1999, a 01/08/2017 completed eCW3 ([place] [place] 2-dose hepatitis B 09:36:00 AM [facility]) schedule for adolescents (11-15 year olds) was FDA approved for Merck's Recombivax HB adult formulation. Use code 43 for the 2-dose. This code should be used for any use of standard adult formulation of hepatitis B vaccine. Tdap 01/08/2017 completed eCW3 ([facility] Ri poly 09:36:00 AM [facility]) As of March 1999, a 07/10/2012 completed eCW3 ([place] [place] 2-dose hepatitis B 09:57:27 PM [facility]) schedule for adolescents (11-15 year olds) was FDA approved for Merck's Recombivax HB adult formulation. Use code 43 for the 2-dose. This code should be used for any use of standard adult formulation of hepatitis B vaccine. Medications Medication Brand Start Product Dose Route Administrative Pharmacy atus Indications Reaction Description Data Name Date Form Instructions Instructions Source(s) atorvastati atorva .00 ORAL active take 1 NEXTGEN n 20 MG statin 2020 {tabl tablet by (Christiano nt Oral Tablet 20 mg 12:00: et} oral route [facility] atorvastati tablet 00 AM every day Medical n 20 mg EDT Center) tablet Metoprolol metopr ORAL active take 1 N EXTGEN Tartrate 25 olol 2020 {tabl tablet by (S aint MG Oral tartra 12:00: et} oral route [facility]ana sephs Tablet te 25 00 AM every Medical metoprolol mg EDT bedtime Center ) tartrate 25 tablet mg tablet Lisinopril lisino ORAL active take 1 N EXTGEN 10 MG Oral pril 2019 {tabl tablet by (Sa int Tablet 10 mg 12:00: et} oral route Nicola phs lisinopril tablet 00 AM every day M edical 10 mg EDT Center) tablet Metformin metfor ORAL active take 1 NE XTGEN hydrochlori min 2019 {tabl tablet by (S aint de 500 MG 500 mg 12:00: et} oral route 2 [facility] Oral Tablet tablet 00 AM times ever y Medical metformin EDT day with Center ) 500 mg morning and tablet evening meals Flonase flutic NASAL active fluticason e NEXTGEN Allergy asone 2019 {spra propionate (Christiano nt Relief 50 propio 12:00: y} 0.05 Andres s mcg/actuati roslyn 00 AM MG/ACTUAT Me dical on nasal 0.05 EDT Metered Dose [address] ter) spray,suspe MG/ACT Nasal [place] nsion UAT [Flonase] Metere d Dose Nasal [place] COLLAGENASE Santyl 01/18/ TOPICA complet stephanie agenase NEXTGEN 0.25 UNT/MG 250 2020 L ed 0.25 UNT/MG ( [facility] Topical unit/g 12:00: Topical Nicholas hs Ointment nelson 00 AM Ointment Medica l [Santyl] topica EDT [Santyl] Cente r) Santyl 250 l unit/gram ointme topical nt ointment Zinc zinc 1 CAPO BY NEXTGE N Sulfate 220 sulfat 2020 MOUTH TWICE ([facility] MG Oral e 220 12:00: DAILY [place] Capsule mg (50 00 AM Medical zinc mg) EDT Center) sulfate 220 capsul mg (50 mg) e capsule Ascorbic Vitami 4 tablets by NEXTGEN Acid 500 MG n C 2020 mouth twice ( [facility] Oral Tablet 500 mg 12:00: daily Ruy ephs Vitamin C tablet 00 AM Medical 500 mg EDT Center) tablet Zinc zinc 1 CAPO BY NEXTG EN Sulfate 220 sulfat 2019 ed MOUTH TWICE ([facility] MG Oral e 220 12:00: DAILY [place] Capsule mg (50 00 AM Medical zinc mg) EDT Center) sulfate 220 capsul mg (50 mg) e capsule glimepiride glimep ORAL complet take 1 NEXTGEN 2 MG Oral iride 2019 {tabl ed tablet by (Sa int Tablet 2 mg 12:00: et} oral route Nicholas hs glimepiride tablet 00 AM every day Medical 2 mg tablet EDT Center) Metformin metfor ORAL complet take 1 N EXTGEN hydrochlori min 2019 {tabl ed tablet by (S aint de 500 MG 500 mg 12:00: et} oral route 2 [place] Oral Tablet tablet 00 AM times ever y Medical metformin EDT day with Center ) 500 mg morning and tablet evening meals Metoprolol metopr ORAL complet take 1 NEXTGEN Tartrate 25 olol 2019 {tabl ed tablet by (S aint MG Oral tartra 12:00: et} oral route Rosana sephs Tablet te 25 00 AM every Medical metoprolol mg EDT bedtime Center ) tartrate 25 tablet mg tablet atorvastati atorva ORAL complet take 1 NEXTGEN n 20 MG statin 2019 {tabl ed tablet by (Christiano nt Oral Tablet 20 mg 12:00: et} oral route [place] atorvastati tablet 00 AM every day Medical n 20 mg EDT Center) tablet Lisinopril lisino ORAL complet take 1 NEXTGEN 10 MG Oral pril 2019 {tabl ed tablet by (Sa int Tablet 10 mg 12:00: et} oral route Nicola phs lisinopril tablet 00 AM every day M edical 10 mg EDT Center) tablet Zinc zinc 12/06/ complet 1 CAPO BY NEXTG EN Sulfate 220 sulfat 2019 ed MOUTH TWICE ([facility] MG Oral e 220 12:00: DAILY [place] Capsule mg (50 00 AM Medical zinc mg) EDT Center) sulfate 220 capsul mg (50 mg) e capsule COLLAGENASE Santyl 11/28/ TOPICA complet STEPHANIE AGENASE NEXTGEN 0.25 UNT/MG 250 2020 L ed 0.25 UNT/MG ( [facility] Topical unit/g 12:00: Topical Nicholas hs Ointment nelson 00 AM Ointment Medica l [Santyl] topica EDT [Santyl] Cente r) Santyl 250 l unit/gram ointme topical nt ointment Metoprolol metopr ORAL complet take 1 NEXTGEN Tartrate 25 olol 2020 {tbl} ed tablet by (S aint MG Oral tartra 12:00: oral route Rosana sephs Tablet te 25 00 AM every Medical metoprolol mg EDT bedtime Center ) tartrate 25 tablet mg tablet repaglinide Repagl active Repaglini de eCW3 2 MG Oral inide 2 MG (Catherine Tablet 2 MG [facility] Repaglinide Health 2 MG Care) Lancets - Lancet active Lancets - e CW3 s - ([facility]) Lancets - Lancet active Lancets - e CW3 s - ([facility]) Basaglar Basagl active Basaglar eCW 3 KwikPen 100 ar KwikPen 100 ( Catherine UNIT/ML KwikPe UNIT/ML [facility] n 100 Health UNIT/M Care) L glimepiride Glimep 1.0 active Glimepiri de eCW3 2 MG Oral iride {tabl 2 MG (Catherine Tablet 2 MG et_[facility] Glimepiride [facility] 2 MG eak Care) st_or _the_ first _main _meal _of_t he_da y} Isopropyl Alcoho active Alcohol Pre p eCW3 Alcohol 0.7 l Prep 70 % ([place] ML/ML 70 % [place] [facility] Alcohol Care) Prep 70 % glimepiride Glimep 1.0 active Glimepiri de eCW3 2 MG Oral iride {tabl 2 MG (Catherine Tablet 2 MG et_[facility] Glimepiride [facility] 2 MG eak Care) st_or _the_ first _main _meal _of_t he_da y} glimepiride Glimep 1.0 active Glimepiri de eCW3 2 MG Oral iride {tabl 2 MG (Catherine Tablet 2 MG et_[facility] Glimepiride [facility]) st_or _the_ first _main _meal _of_t he_da y} Blood Blood active Blood eCW3 Glucose Glucos Glucose Test (H udson Test - e Test - [facility]) glimepiride Glimep 1.0 active Glimepiri de eCW3 2 MG Oral iride {tabl 2 MG (Catherine Tablet 2 MG et_wi [place] Glimepiride [facility] 2 MG [facility]) st_or _the_ first _main _meal _of_t he_da y} Isopropyl Alcoho active Alcohol Pre p eCW3 Alcohol 0.7 l Prep 70 % ([place] ML/ML 70 % [place] [facility] Alcohol Care) Prep 70 % Lancets - Lancet active Lancets - e CW3 s - ([facility]) Basaglar Basagl active Basaglar eCW 3 KwikPen 100 ar KwikPen 100 ( Catherine UNIT/ML KwikPe UNIT/ML [facility] n 100 Health UNIT/ Care) L atorvastati Atorva 1.0 active Atorvasta tin eCW3 n 40 MG statin {tabl Calcium 40 (Hu dson Oral Tablet Calciu et} MG [place] Atorvastati 40 Health n Calcium MG Care) 40 MG Blood Blood active Blood eCW3 Glucose Glucos Glucose Test (H udson Test - e Test - [facility]) Basaglar Basagl active Basaglar eCW 3 KwikPen 100 ar KwikPen 100 ( [facility] UNIT/ML KwikPe UNIT/ML [place] n 100 Health UNIT/ Care) L glimepiride Glimep 1.0 active Glimepiri de eCW3 2 MG Oral iride {tabl 2 MG (Catherine Tablet 2 MG et_[facility] Glimepiride [facility] 2 MG [facility]) st_or _the_ first _main _meal _of_t he_da y} repaglinide Repagl active Repaglini de eCW3 2 MG Oral inide 2 MG (Catherine Tablet 2 MG [place] Repaglinide [facility] 2 MG Care) NIFEdipine UNK 1.0 active NIFEdipine e CW3 60 MG {tabl 60 MG (Catherine et} [place] [facility]) NIFEdipine UNK 1.0 active NIFEdipine e CW3 60 MG {tabl 60 MG (Catherine et} [place] [facility]) Metoprolol Metopr 1.0 active Metoprolol eCW3 Tartrate 25 olol {tabl Tartrate 25 (Catherine MG Oral Tartra et_wi MG [place] Tablet te 25 th_fo Health MG od} Care) NIFEdipine UNK 1.0 active NIFEdipine e CW3 60 MG {tabl 60 MG ([facility] et} [facility]) Basaglar Basagl active Basaglar eCW 3 KwikPen 100 ar KwikPen 100 ( [facility] UNIT/ML KwikPe UNIT/ML [place] n 100 Health UNIT/M Care) L repaglinide Repagl active Repaglini de eCW3 2 MG Oral inide 2 MG (Catherine Tablet 2 MG [facility] Repaglinide Health 2 MG Care) repaglinide Repagl active Repaglini de eCW3 2 MG Oral inide 2 MG ([facility]atherine Tablet 2 MG [facility] Repaglinide Health 2 MG Care) Basaglar Basagl active Basaglar eCW 3 KwikPen 100 ar KwikPen 100 ( [facility] UNIT/ML KwikPe UNIT/ML [place] n 100 Health UNIT/M Care) L Metoprolol Metopr 1.0 active Metoprolol eCW3 Tartrate 25 olol {tabl Tartrate 25 (Catherine MG Oral Tartra et_wi MG [place] Tablet te 25 th_fo Health MG od} Care) Metoprolol Metopr 1.0 active Metoprolol eCW3 Tartrate 25 olol {tabl Tartrate 25 (Catherine MG Oral Tartra et_wi MG [place] Tablet te 25 th_fo Health MG od} Care) atorvastati Atorva 1.0 active Atorvasta tin eCW3 n 40 MG statin {tabl Calcium 40 (Hu dson Oral Tablet Calciu et} MG [place] Atorvastati 40 Health n Calcium MG Care) 40 MG silver Silvad 1.0 active Silvadene 1 eC W3 sulfadiazin adriana 1 {appl % ([place] n e 10 MG/ML % icati [place] Topical on} Health [facility] Care) [Silvadene] Silvadene 1 % Blood UNK active Blood eCW3 Glucose Glucose ([facility]) Blood UNK active Blood eCW3 Glucose Glucose ([facility]) atorvastati Atorva 1.0 active Atorvasta tin eCW3 n 40 MG statin {tabl Calcium 40 (Hu dson Oral Tablet Calciu et} MG [place] Atorvastati 40 Health n Calcium MG Care) 40 MG Blood UNK active Blood eCW3 Glucose Glucose ([facility]) Blood UNK active Blood eCW3 Glucose Glucose ([facility]) atorvastati Atorva 1.0 active Atorvasta tin eCW3 n 40 MG statin {tabl Calcium 40 (Hu dson Oral Tablet Calciu et} MG [place] Atorvastati m 40 Health n Calcium MG Care) 40 MG glimepiride Glimep 1.0 active Glimepiri de eCW3 2 MG Oral iride {tabl 2 MG (Catherine Tablet 2 MG et_wi [place] Glimepiride _br Health 2 MG [facility] Care) st_or _the_ first _main _meal _of_t he y} Isopropyl Alcoho active Alcohol Pre p eCW3 Alcohol 0.7 l Prep 70 % ([place] ML/ML 70 % [place] Medicated [facility] Alcohol Care) Prep 70 % Isopropyl Alcoho active Alcohol Pre p eCW3 Alcohol 0.7 l Prep 70 % ([place] ML/ML 70 % [place] Medicated [facility] Alcohol Care) Prep 70 % Metoprolol Metopr 1.0 active Metoprolol eCW3 Tartrate 25 olol {tabl Tartrate 25 (Catherine MG Oral Tartra et_wi MG [place] Tablet te 25 _fo Health MG od} Care) glimepiride Glimep 1.0 active Glimepiri de eCW3 2 MG Oral iride {tabl 2 MG (Catherine Tablet 2 MG et_wi [place] Glimepiride _br [facility] 2 MG [facility]) st_or _the_ first _main _meal _of_t _ y} Blood Blood active Blood eCW3 Glucose Glucos Glucose Test (H udson Test - e Test - [place] [facility]) Basaglar Basagl active Basaglar eCW 3 KwikPen 100 ar KwikPen 100 ( [facility] UNIT/ML KwikPe UNIT/ML [place] n 100 Health UNIT/M Care) L Lancets - Lancet active Lancets - e CW3 s - ([facility]) glimepiride Glimep 1.0 active Glimepiri de eCW3 2 MG Oral iride {tabl 2 MG (Catherine Tablet 2 MG et_wi [place] Glimepiride [facility] 2 MG eak Care) st_or _the_ first _main _meal _of_t he_da y} Basaglar Basagl active Basaglar eCW 3 KwikPen 100 ar KwikPen 100 ( [facility] UNIT/ML KwikPe UNIT/ML [place] n 100 Health UNIT/M Care) L NIFEdipine UNK 1.0 active NIFEdipine e CW3 60 MG {tabl 60 MG (Catherine et} [facility] Care) Blood Blood active Blood eCW3 Glucose Glucos Glucose Test (H udson Test - e Test - [facility]) Basaglar Basagl active Basaglar eCW 3 KwikPen 100 ar KwikPen 100 ( [facility] UNIT/ML KwikPe UNIT/ML [place] n 100 Health UNIT/M Care) L Insurance Providers Payer name Policy type Policy ID Covered Covered constitution party's Policy P arturo / Coverage constitution party ID relationship to [place] Inf ormation type mars MER [id number] SP [id number] HEALTH NON CAP MER CARE W [id number] [place] [id number] SP [id number] MER CARE W [id number] 01 [id number] [place] AFF[place] O [id number] 01 [id number] 500 HEALTH PLAN Problems, Conditions, and Diagnoses Code Display Name Description Problem Type Effective Data Dates Source(s) L98.429 Stage 1 skin ulcer Stage 1 skin ulcer Problem 0 eCW3 ([facility] of [place] 12:00:00 AM [facility] EDT Care) G89.29 Other chronic pain Other chronic pain Problem 0 eCW3 ([facility]atherine 12:00:00 AM [facility] EDT Care) E11.65 Uncontrolled type 2 Uncontrolled type 2 Problem 020 eCW3 ([facility]atherine diabetes mellitus diabetes mellitus 12:00:00 AM [facility] with hyperglycemia with hyperglycemia EDT Care) N48.1 Balanitis Balanitis Problem 08/06/2019 eCW3 ([facility] 12:00:00 AM [facility] EST Care) N48.1 Balanitis Balanitis Problem 04/21/2019 eCW3 ([facility] 12:00:00 AM [facility] EDT Care) L20.82 Flexural eczema Flexural eczema Problem 02/11/2019 eCW3 ([facility] 12:00:00 AM [facility] EDT Care) 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 Problem 02/11/2019 eCW3 ([facility] origin dysfunction, 12:00:00 AM [facility] unspecified erectile EDT Care ) dysfunction type E11.69 Complication due to Controlled type 2 Problem 9 eCW3 (Catherine diabetes mellitus diabetes mellitus 12:00:00 AM [place] [facility] type 2 with other specified EDT Care ) complication L83 Acanthosis nigricans Acanthosis nigricans Problem 08/06 eCW3 ([facility] 12:00:00 AM [facility] EST Care) M54.9 Back pain Back pain Problem 05/16/2017 eCW3 ([facility] 12:00:00 AM [facility] EDT Care) E66.9 Obesity Obesity Problem 02/14/2017 eCW3 ([facility] 12:00:00 AM [facility] EDT Care) E55.9 Vitamin D deficiency Vitamin D deficiency Problem 10/08 eCW3 ([facility] 12:00:00 AM [facility] EDT Care) R74.8 Liver enzymes Abnormal liver Problem 10/08/2016 eCW3 (H udson abnormal enzymes 12:00:00 AM [facility] EDT Care) R80.9 Microalbuminuria Microalbuminuria Problem 10/08/2016 eC W3 ([facility]atherine 12:00:00 AM [facility] EDT Care) H52.13 Myopia of both eyes Myopia of both eyes Problem 017 eCW3 ([facility] 12:00:00 AM [place] [facility] EST Care) E78.5 Hyperlipidemia, Hyperlipidemia, Problem 04/30/2016 eCW3 ([facility] unspecified unspecified 12:00:00 AM [facility] hyperlipidemia type hyperlipidemia type EDT Care) I10 Essential Essential Problem 04/24/2016 eCW3 ([facility] hypertension hypertension 12:00:00 AM [facility] EDT Care) K76.0 Fatty liver Fatty liver Problem 04/24/2016 eCW3 ([facility] 12:00:00 AM [facility] EDT Care) L89.153 Pressure ulcer of PRESSURE ULCER OF Diagnosis 03/08/2020 [facility] sacral region, stage [place], STAGE 03:06 :00 PM [place] [address] [place] [address] E11.9 Type 2 diabetes TYPE 2 DIABETES Diagnosis 03/08/2020 Chayito t mellitus without MELLITUS WITHOUT 03:06:00 PM [facility] complications COMPLICATIONS [facility] Z71.82 Exercise counseling EXERCISE COUNSELING Diagnosis 020 [facility] 11:21:00 AM [facility] Z71.3 Dietary counseling DIETARY COUNSELING Diagnosis 0 [facility] and surveillance AND SURVEILLANCE 11:21:00 AM [facility] Z68.39 Body mass index BODY MASS INDEX Diagnosis 12/21/2019 Chayito t (BMI) 39.0-39.9, (BMI) 39.0-39.9, 11:21:00 AM [facility] adult ADULT [facility] Z79.84 halfway (current) HALF-WAY (CURRENT) Diagnosis [facility] use of oral USE OF ORAL 11:21:00 AM [facility] hypoglycemic drugs HYPOGLYCEMIC DRUGS [facility] Z68.38 Body mass index BODY MASS INDEX Diagnosis 11/29/2019 Chayito armando (BMI) 38.0-38.9, (BMI) 38.0-38.9, 11:08:00 AM [facility] adult ADULT [facility] E78.5 Hyperlipidemia, HYPERLIPIDEMIA, Diagnosis 11/29/2019 [facility] unspecified UNSPECIFIED 11:08:00 AM [facility] I10 Essential (primary) ESSENTIAL (PRIMARY) Diagnosis [facility] hypertension HYPERTENSION 11:08:00 AM [facility] L89.90 Pressure ulcer of PRESSURE ULCER OF Diagnosis 11/29/2019 unspecified site, UNSPECIFIED SITE, 11:08:00 AM [facility] unspecified stage UNSPECIFIED STAGE [facility] Diagnosis NEXTGEN ([facility]) Diagnosis NEXTGEN ([facility]) Diagnosis [facility] ([facility]) Diagnosis [facility] ([facility]) Surgeries/Procedures Procedure Description Date Indications Data Source(s) OFFICE/OUTPATIENT VISIT, 03/08/2020 NEX TGEN ([facility] EST 12:00:[address] [facility] 03/08/2020 [place]) 12:00:00 AM EDT ROUTINE VENIPUNCTURE 03/08/2020 NEXTGEN ([facility] 12:00:[address] [facility] 03/08/2020 [place]) 12:00:00 AM EDT OFFICE/OUTPATIENT VISIT, 12/21/2019 NEX TGEN ([facility] EST 12:00:00 AM EDT [facility] - 12/21/2019 [place]) 12:00:00 AM EDT OFFICE/OUTPATIENT VISIT, 12/07/2019 NEX TGEN ([facility] EST 12:00:00 AM EDT [facility] - 12/07/2019 [place]) 12:00:00 AM EDT OFFICE/OUTPATIENT VISIT, 11/29/2019 NEX TGEN ([facility] 12:00:00 AM EDT [facility] - 11/29/2019 [place]) 12:00:00 AM EDT ROUTINE VENIPUNCTURE 11/29/2019 NEXTGEN ([facility] 12:00:00 AM EDT [facility] 11/29/2019 [place]) 12:00:00 AM EDT Results ID Date Data Source [id number] 03/08/2020 04:27:00 PM EDT [facility] Name Value Range Interpretation Description Data Sup porting Code Source(s) Document(s ) UNK > 60 Below low normal <content [facility] styleCode="Bold"> [facility] HDL- Cholesterol Medical </content>24 Center MG/DL L<content styleCode="Italic s"> (> 60 MG/DL)</content> Cholesterol -<200 Above high normal <content [facility] [Mass/volume] styleCode="Bold"> [facility] in Serum or Cholesterol Medical Plasma </content>204 Center MG/DL H<content styleCode="Italic s"> (-<200 MG/DL)</content> Triglyceride < 150 Above high normal <content [facility] [Mass/volume] styleCode="Bold"> [place] in Serum or Triglycerides Medical Plasma </content>403 Center MG/DL H<content styleCode="Italic s"> (< 150 MG/DL)</content> UNK <content [facility] styleCode="Bold"> [facility] LDL-Cholesterol Medical </content> Center (Reference Range: not available)
<c ontent styleCode="xLocal PreformattedText" >Triglycerides are >250 mg/dl; therefore, the LDL calculation is invalid.
Chol esterol electrophoresis is recommended if medically appropriate.</con tent> ID Date Data Source CHMROUTINECCDA.[id number] 03/08/2020 04:27:00 PM EDT [facility] -0400 Name Value Range Interpretation Code Description Data Debbie rce(s) Supporting Document(s ) UNK 4.2-5.8 Above high normal <content Sebastian s styleCode="Bold" Medical Cente r >Hemoglobin A1C </content>12.0 % H<content styleCode="Itali cs"> (4.2-5.8 %)</content> ID Date Data Source Liver 11/29/2019 01:04:00 PM EDT [facility] Profile.[id number] Name Value Range Interpretation Description Data Sup porting Code Source(s) Document(s ) Aspartate 17-59 <content [facility] aminotransferase styleCode="Bold"> Nicholas hs [Enzymatic Aspartate Medical activity/volume] Aminotransferase Center in Serum or Plasma (AST) </content>28 IU/L<content styleCode="Italic s"> (17-59 IU/L)</content> Alkaline 38-126 <content [facility] phosphatase styleCode="Bold"> [facility] [Enzymatic Alkaline Medical activity/volume] Phosphatase (ALP) Cente r in Serum or Plasma </content>98 IU/L<content styleCode="Italic s"> (38-126 IU/L)</content> Bilirubin.total 0.2-1.3 <content [facility] [Mass/volume] in styleCode="Bold"> Nicholas hs Serum or Plasma Bilirubin Total Medical </content>0.4 Center MG/DL<content styleCode="Italic s"> (0.2-1.3 MG/DL)</content> Albumin 3.5-5.0 <content [facility] [Mass/volume] in styleCode="Bold"> Nicholas hs Serum or Plasma Albumin Medical </content>4.0 Center G/DL<content styleCode="Italic s"> (3.5-5.0 G/DL)</content> Alanine 7-50 <content [facility] aminotransferase styleCode="Bold"> Nicholas hs [Enzymatic Alanine Medical activity/volume] Aminotransferase Center in Serum or Plasma (ALT) </content>47 IU/L<content styleCode="Italic s"> (7-50 IU/L)</content> ID Date Data Source LIPID.[id number] 11/29/2019 01:04:00 PM EDT [facility] Name Value Range Interpretation Description Data Sup porting Code Source(s) Document(s ) Cholesterol -<200 <content [facility] [Mass/volume] in styleCode="Hermes [facility] Serum or Plasma d">Cholesterol Medical </content>128 Center MG/DL<content styleCode="Beth lics"> (-<200 MG/DL)</conten t> UNK > 60 Below low normal <content [facility] styleCode="Hermes [facility] d">HDL- Medical Cholesterol Center </content>26 MG/DL L<content styleCode="Beth lics"> (> 60 MG/DL)</conten t> UNK < 100 <content [facility] styleCode="Hermes Rosette d">LDL-Cholest [facility] tatyana [place] </content>61 MG/DL<content styleCode="Beth lics"> (< 100 MG/DL)</conten t> Triglyceride < 150 Above high normal <content [facility] [Mass/volume] in styleCode="Hermes [place] Serum or Plasma d">Triglycerid [facility] </content>206 MG/DL H<content styleCode="Beth lics"> (< 150 MG/DL)</conten t> ID Date Data Source [id number] 11/29/2019 01:04:00 PM EDT [facility] Name Value Range Interpretation Description Data Sup porting Code Source(s) Document(s ) Thyrotropin 0.465-4. <content [facility] [Units/volume] 68 styleCode="Hermes [place] in Serum or d">Thyroid Medical Plasma by Stimulating Center Detection Hormone limit <= 0.05 </content>1.92 mIU/L MIU/L<content styleCode="Beth lics"> (0.465-4.68 MIU/L)</conten t> ID Date Data Source HematologyRou.[id number] 11/29/2019 01:04:00 PM EDT [facility] Name Value Range Interpretation Description Data Sup porting Code Source(s) Document(s ) Erythrocytes 4.4-5.9 Below low normal <content [facility] [#/volume] in styleCode="Bold [place] Blood by ">Red Blood Medical Automated count Cell Count Center </content>3.39 MCUMM L<content styleCode="Ital ics"> (4.4-5.9 MCUMM)</content > Hemoglobin 13.5-17. Below low normal <content [facility] [Mass/volume] in 5 styleCode="Bold [place] Blood ">Hemoglobin Medical </content>10.3 Center G/DL L<content styleCode="Ital ics"> (13.5-17.5 G/DL)</content> Leukocytes 4.4-11.0 <content [facility] [#/volume] in styleCode="Bold [place] Blood by ">White Blood Medical Automated count Cell Count Center </content>6.18 KCUMM<content styleCode="Ital ics"> (4.4-11.0 KCUMM)</content > Hematocrit 41.0-53. Below low normal <content [facility] [Volume 0 styleCode="Bold [place] Fraction] of ">Hematocrit Medical Blood by </content>30.1 Center Automated count % L<content styleCode="Ital ics"> (41.0-53.0 %)</content> Erythrocyte mean 26.0-34. <content [facility] corpuscular 0 styleCode="Bold [place] hemoglobin ">Mean Medical [Entitic mass] Corposcular Center by Automated Hemoglobin count </content>30.4 PG<content styleCode="Ital ics"> (26.0-34.0 PG)</content> Erythrocyte mean 80.0-100 <content [facility] corpuscular .0 styleCode="Bold [place] volume [Entitic ">Mean Medical volume] by Corpuscular Center Automated count Volume </content>88.8 FL<content styleCode="Ital ics"> (80.0-100.0 FL)</content> Erythrocyte 11.5-14. <content [facility] distribution 5 styleCode="Bold [facility] width [Ratio] by ">Red Cell Medical Automated count Distribution Center Width </content>13.9 %<content styleCode="Ital ics"> (11.5-14.5 %)</content> Erythrocyte mean 32.0-37. <content [facility] corpuscular 0 styleCode="Bold [place] hemoglobin ">Mean Corpus. Medical concentration Hgb Center [Mass/volume] by Concentration Automated count (MCHC) </content>34.2 G/DL<content styleCode="Ital ics"> (32.0-37.0 G/DL)</content> UNK 0 <content [facility] styleCode="Bold [facility] ">Nucleated Red Medical Blood Cell Center </content>0.0 /100<content styleCode="Ital ics"> (0 /100)</content> UNK 0.0 <content [facility] styleCode="Bold [facility] ">Nucleated Red Medical Blood Cell Center Count </content>0.00 KCUMM<content styleCode="Ital ics"> (0.0 KCUMM)</content > Platelets 130-400 <content [facility] [#/volume] in styleCode="Bold [place] Blood by ">Platelet Medical Automated count Count Center </content>343 KCUMM<content styleCode="Ital ics"> (130-400 KCUMM)</content > Platelet mean 8.0-11.0 <content [facility] volume [Entitic styleCode="Bold [facility] volume] in Blood ">Mean Platelet Medical by Automated Volume Center count </content>9.7 FL<content styleCode="Ital ics"> (8.0-11.0 FL)</content> ID Date Data Source GFR(Creatinine).[id number] 11/29/2019 01:04:00 PM EDT [facility] 0-0400 Name Value Range Interpretation Code Description Data Debbie rce(s) Supporting Document(s ) UNK > 60 <content [facility] styleCode="Bold"> Medical Cent er EGFR </content>100 GFR<content styleCode="Italic s"> (> 60 GFR)</content> ID Date Data Source CHMROUTINECCDA.[id number] 11/29/2019 01:04:00 PM EDT [facility] -0400 Name Value Range Interpretation Description Data Sup porting Code Source(s) Document(s ) UNK >= 1.0 <content [facility] styleCode="Bold Medical ">AG Ratio Center </content>1.2 <content styleCode="Ital ics"> (>= 1.0 )</content> UNK 2.3-3.5 <content [facility] styleCode="Bold Medical ">Globulin Center </content>3.4 G/DL<content styleCode="Ital ics"> (2.3-3.5 G/DL)</content> UNK 4.2-5.8 Above high normal <content [facility] styleCode="Bold Medical ">Hemoglobin Center A1C </content>7.8 % H<content styleCode="Ital ics"> (4.2-5.8 %)</content> Protein 6.3-8.2 <content [facility] [Mass/volum styleCode="Bold Medical e] in Serum ">Total Protein Center or Plasma </content>7.4 G/DL<content styleCode="Ital ics"> (6.3-8.2 G/DL)</content> ID Date Data Source [id number] 11/29/2019 01:04:00 PM EDT [facility] Name Value Range Interpretation Description Data Sup porting Code Source(s) Document(s ) Sodium 137-145 Below low <content [facility] [Moles/volume] in normal styleCode="Bold"> Nicola phs Serum or Plasma Sodium Medical </content>135 Center MEQ/L L<content styleCode="Italic s"> (137-145 MEQ/L)</content> Potassium 3.5-5.3 <content [facility] [Moles/volume] in styleCode="Bold"> Nicola phs Serum or Plasma Potassium Medical </content>4.3 Center MEQ/L<content styleCode="Italic s"> (3.5-5.3 MEQ/L)</content> Creatinine 0.5-1.3 <content [facility] [Mass/volume] in styleCode="Bold"> Nicholas hs Serum or Plasma Creatinine Medical </content>0.9 Center MG/DL<content styleCode="Italic s"> (0.5-1.3 MG/DL)</content> Carbon dioxide, 22-30 <content [facility] total styleCode="Bold"> [facility] [Moles/volume] in Carbon Dioxide Medical Serum or Plasma </content>22 Center MEQ/L<content styleCode="Italic s"> (22-30 MEQ/L)</content> UNK 9-20 Above high <content [facility] normal styleCode="Bold"> [facility] BUN </content>21 Medical MG/DL H<content Center styleCode="Italic s"> (9-20 MG/DL)</content> Chloride 98-107 <content [facility] [Moles/volume] in styleCode="Bold"> Nicola phs Serum or Plasma Chloride Medical </content>103 Center MEQ/L<content styleCode="Italic s"> (98-107 MEQ/L)</content> Glucose 74-106 Above high <content [facility] [Mass/volume] in normal styleCode="Bold"> Nicholas hs Serum or Plasma Glucose Medical </content>131 Center MG/DL H<content styleCode="Italic s"> (74-106 MG/DL)</content> UNK > 60 <content [facility] styleCode="Bold"> [facility] EGFR Medical </content>100 Center GFR<content styleCode="Italic s"> (> 60 GFR)</content> Alkaline 38-126 <content [facility] phosphatase styleCode="Bold"> [facility] [Enzymatic Alkaline Medical activity/volume] Phosphatase (ALP) Cente r in Serum or Plasma </content>98 IU/L<content styleCode="Italic s"> (38-126 IU/L)</content> Alanine 7-50 <content [facility] aminotransferase styleCode="Bold"> Nicholas hs [Enzymatic Alanine Medical activity/volume] Aminotransferase Center in Serum or Plasma (ALT) </content>47 IU/L<content styleCode="Italic s"> (7-50 IU/L)</content> Calcium 8.4-10. <content [facility] [Mass/volume] in 2 styleCode="Bold"> Nicholas hs Serum or Plasma Calcium Medical </content>9.5 Center MG/DL<content styleCode="Italic s"> (8.4-10.2 MG/DL)</content> Aspartate 17-59 <content [facility] aminotransferase styleCode="Bold"> Nicholas hs [Enzymatic Aspartate Medical activity/volume] Aminotransferase Center in Serum or Plasma (AST) </content>28 IU/L<content styleCode="Italic s"> (17-59 IU/L)</content> Bilirubin.total 0.2-1.3 <content [facility] [Mass/volume] in styleCode="Bold"> Nicholas hs Serum or Plasma Bilirubin Total Medical </content>0.4 Center MG/DL<content styleCode="Italic s"> (0.2-1.3 MG/DL)</content> Albumin 3.5-5.0 <content [facility] [Mass/volume] in styleCode="Bold"> Nicholas hs Serum or Plasma Albumin Medical </content>4.0 Center G/DL<content styleCode="Italic s"> (3.5-5.0 G/DL)</content> ID Date Data Source [id number] 11/10/2019 05:00:00 PM EDT [facility] Name Value Range Interpretation Description Data Sup porting Code Source(s) Document(s ) SARS [facility] CORONAVIRUS 2 RNA This lab was ordered by [facility] and reported by [facility]. ID Date Data Source [id number] 10/08/2019 05:00:00 PM EDT [facility] Name Value Range Interpretation Description Data Sup porting Code Source(s) Document(s ) SARS [facility] CORONAVIRUS 2 RNA This lab was ordered by [facility] and reported by [facility]. Procedure Social History Code Duration Value Status Description Data Source(s ) Caffeine Use 03/08/2020 completed NEXTGEN ([facility] Details 12:00:00 AM EDT [facility]) 03/08/2020 Current completed Current NEXTGEN ([facility] 12:00:00 AM EDT non-smoker non-smoker [facility]) Smoking 03/08/2020 Unknown if completed Unknown if ever NEXTGEN ( [facility] 12:00:00 AM EDT ever smoked smoked [facility]) Caffeine Use 01/19/2020 completed NEXTGEN ([facility] Details 12:00:00 AM T [facility]) Smoking 11/05/2019 Never Smoker completed Never Smoker eCW3 ([facility] 12:[facility]:00 AM [facility]) Smoking 11/05/2019 Never Smoker completed Never Smoker eCW3 ([facility] 12:00:00 AM [facility]) Smoking 11/05/2019 Never Smoker completed Never Smoker eCW3 ([facility] 12:00:00 AM [facility]) Smoking 11/05/2019 Never Smoker completed Never Smoker eCW3 ([facility] 12:00:00 AM [facility]) Never Smoker completed Never Smoker eCW3 ([facility] Alcohol Use completed NEXTGEN ([facility]) Smoking Unknown if completed Unknown if ever [facility] ever smoked smoked Medical Cente r Never Smoker completed Never Smoker eCW3 ([facility]) Never Smoker completed Never Smoker eCW3 ([facility]) Never Smoker completed Never Smoker eCW3 ([facility]) Vital Signs ID Date Data Source UNK Name Value Range Interpretation Code Description Data Source(s) Oxygen saturation 98 % 98 % NEXTGEN ([facility] in Arterial blood [facility] by Pulse oximetry Center) Body mass index 43.05 kg/m2 Overweight 43.05 kg/m2 [facility] ([facility] (BMI) [Ratio] [facility]) Respiratory rate 17 /min 17 /min [facility] ([facility]) Body temperature 37.11 Marisa 37.11 Marisa [facility] ([facility]) Heart rate 96 /min 96 /min [facility] ([facility]) Diastolic blood 92 mm[Hg] 92 mm[Hg] [facility] ( [facility] pressure [facility]) Systolic blood 133 mm[Hg] 133 mm[Hg] [facility] (S aint pressure [facility]) Body weight 110.223 kg 110.223 kg [facility] ([facility]) Body height 160.02 cm 160.02 cm [facility] ([facility]) Oxygen saturation 97 % 97 % NEXTGEN ([facility] in Arterial blood [facility] by Pulse oximetry Center) Body mass index 39.68 kg/m2 Overweight 39.68 kg/m2 NEXTGEN ([facility] (BMI) [Ratio] [facility]) Respiratory rate 19 /min 19 /min NEXTGEN ([facility]) Body temperature 36.44 Marisa 36.44 Marisa NEXTGEN ([facility]) Heart rate 108 /min 108 /min NEXTGEN ([facility]) Diastolic blood 86 mm[Hg] 86 mm[Hg] NEXTGEN ( [facility]) Systolic blood 123 mm[Hg] 123 mm[Hg] NEXTGEN (S nt [facility]) Body weight 101.605 kg 101.605 kg [facility] ([facility]) Body height 160.02 cm 160.02 cm [facility] ([facility]) Oxygen saturation 99 % 99 % NEXTGEN ([facility] in Arterial blood [facility] by Pulse oximetry Center) Body mass index 39.33 kg/m2 Overweight 39.33 kg/m2 NEXTGEN ([facility] (BMI) [Ratio] [facility]) Respiratory rate 18 /min 18 /min NEXTGEN ([facility]) Body temperature 36.44 Marisa 36.44 Marisa [facility] ([facility]) Heart rate 118 /min 118 /min NEXTGEN ([facility]) Diastolic blood 76 mm[Hg] 76 mm[Hg] NEXTGEN ( [facility]) Systolic blood 106 mm[Hg] 106 mm[Hg] [facility] ([facility] nt [facility]) Body weight 100.698 kg 100.698 kg [facility] ([facility]) Body height 160.02 cm 160.02 cm [facility] ([facility]) Oxygen saturation 99 % 99 % NEXTGEN ([facility] in Arterial [facility] by Pulse oximetry Center) Body mass index 38.79 kg/m2 Overweight 38.79 kg/m2 NEXTGEN ([facility] (BMI) [Ratio] [facility]) Respiratory rate 20 /min 20 /min [facility] ([facility]) Body temperature 36.56 Marisa 36.56 Marisa NEXTGEN ([facility]) Heart rate 126 /min 126 /min NEXTGEN ([facility]) Diastolic blood 79 mm[Hg] 79 mm[Hg] NEXTGEN ( [facility]) Systolic blood 112 mm[Hg] 112 mm[Hg] NEXTGEN ([facility]) Body weight 99.337 kg 99.337 kg NEXTGEN ([facility]) Body height 160.02 cm 160.02 cm NEXTGEN ([facility]) Diastolic blood 80 mm[Hg] 80 mm[Hg] eCW3 ([facility]) Systolic blood 143 mm[Hg] 143 mm[Hg] eCW3 ([facility]) Body temperature 98.2 [degF] 98.2 [degF] eCW3 ( [facility]) Body mass index 39.95 kg/m2 39.95 kg/m2 eCW3 ([facility] (BMI) [Ratio] [facility]) Body weight 234 [lb_av] 234 [lb_av] eCW3 ([facility]) Body height 64.17 [in_i] 64.17 [in_i] eCW3 ([facility]) Diastolic blood 88 mm[Hg] 88 mm[Hg] eCW3 ([facility]) Systolic blood 132 mm[Hg] 132 mm[Hg] eCW3 ([facility]) Body temperature 98.3 [degF] 98.3 [degF] eCW3 ( [facility]) Body mass index 40.63 kg/m2 40.63 kg/m2 eCW3 ([facility] (BMI) [Ratio] [facility]) Body weight 238 [lb_av] 238 [lb_av] eCW3 ([facility]) Body height 64.17 [in_i] 64.17 [in_i] eCW3 ([facility]) Diastolic blood 77 mm[Hg] 77 mm[Hg] eCW3 ([facility]) Systolic blood 118 mm[Hg] 118 mm[Hg] eCW3 ([facility]) Body temperature 97.7 [degF] 97.7 [degF] eCW3 ( [facility]) Body mass index 40.12 kg/m2 40.12 kg/m2 eCW3 ([facility] (BMI) [Ratio] [facility]) Body weight 235 [lb_av] 235 [lb_av] eCW3 ([facility]) Body height 64.17 [in_i] 64.17 [in_i] eCW3 ([facility]) Diastolic blood 80 mm[Hg] 80 mm[Hg] eCW3 ([facility]) Systolic blood 126 mm[Hg] 126 mm[Hg] eCW3 ([facility]) Body temperature 98.6 [degF] 98.6 [degF] eCW3 ( [facility]) Body mass index 39.44 kg/m2 39.44 kg/m2 eCW3 ([facility] (BMI) [Ratio] [facility]) Body weight 231 [lb_av] 231 [lb_av] eCW3 ([facility]) Body height 64.17 [in_i] 64.17 [in_i] eCW3 ([facility]) Patient Treatment Plan of Care Planned Activity Planned Date Details Description Data Source (s) Metoprolol Tartrate 25 MG 03/08/2020 12:00:00 NEXTGEN ([facility] Oral Tablet [facility]) Flonase Allergy Relief 50 03/08/2020 12:00:00 NEXTGEN ([facility] mcg/actuation nasal [facility] spray,suspension Center) Metformin hydrochloride 03/08/2020 12:00:00 NEXTGEN ([facility] 500 MG Oral Tablet [facility]) Lisinopril 10 MG Oral 03/08/2020 12:00:00 NEXTGEN ([facility] Tablet [facility]) atorvastatin 20 MG Oral 03/08/2020 12:00:00 NEXTGEN ([facility] Tablet [facility]) COLLAGENASE 0.25 UNT/MG 01/19/2020 12:00:00 NEXTGEN ([facility] Topical Ointment [Santyl] [facility]) Zinc Sulfate 220 MG Oral 01/19/2020 12:00:00 NEXTGEN ([facility] Capsule [facility]) Zinc Sulfate 220 MG Oral 12/21/2019 12:00:00 [facility] ([facility] Capsule [facility]) glimepiride 2 MG Oral 12/21/2019 12:00:00 [facility] ([facility] Tablet [facility]) Ascorbic Acid 500 MG Oral 12/21/2019 [facility] Zinc Sulfate 220 MG Oral 12/07/2019 [facility]:00[facility] C[facility]) Metoprolol Tartrate 25 MG 12/07/2019 12:00:00 [facility] ([facility] Oral Tablet [facility]) Lisinopril 10 MG Oral 12/07/2019 12:00:00 [facility] ([facility]) atorvastatin 20 MG Oral 12/07/2019 12:00:00 [facility] ([facility]) Metformin hydrochloride 12/07/2019 12:00:00 NEXTGEN ([facility] 500 MG Oral Tablet [facility]) COLLAGENASE 0.25 UNT/MG 11/29/2019 12:00:00 [facility] ([facility] Topical Ointment [Santyl] [facility]) Metoprolol Tartrate 25 MG 11/29/2019 12:00:00 [facility] ([facility] Oral Tablet [facility])
[2020-04-19] MEDS ORDERED: ONDANSETRON 4 MG/2 ML VIAL IVPB ONE (10:24)
[2020-04-19] MEDS ORDERED: SODIUM CHLORIDE 1,000 ML IV STA ×2 (10:24→13:20)
[2020-04-19] MEDS ORDERED: ACETAMINOPHEN 1000 MG/100 ML VIAL (NON FORMULARY) IVPB ONE (10:24)
[2020-04-19] MEDS ORDERED: FAMOTIDINE 20 MG/50 ML IVPB 20 MG/50 ML MG IVPB ONE ×2 (10:45→10:58)
[2020-04-19] MEDS ORDERED: ACETAMINOPHEN INJECTION 100 ML IVPB ONE (10:58)
--- NOTE | 2020-04-19 11:44 | PDOC ---
Documentation entered by Blaze Tubbs SCRIBE, acting as scribe for Dav Ricks MD. Dav Ricks MD: This documentation has been prepared by the Arley yi Alexis, SCRIBE, under my direction and personally reviewed by me in its entirety. I confirm that the documentation accurately reflects all work, treatment, procedures, and medical decision making performed by me. History of Present Illness - General Chief Complaint: Pain Stated Complaint: NAUSEA/VOMITING Time Seen by Provider: 04/19/20 10:11 History Source: Patient Exam Limitations: No Limitations - History of Present Illness Initial Comments: 04/19/20 10:42 The patient is a year old male with a significant past medical history of COVID- 19 (October 2019, intubated in the ICU for one week), DM, HTN, and HLD who presents to the emergency department for evaluation of nausea, vomiting, and diarrhea that began three days ago. The patient reports one episode of yellow appearing emesis associated with epigastric pain. Several episodes of watery brown diarrhea. Endorses chills. Denies sick contacts. The patient denies chest pain, cough, and shortness of breath. Denies any symptoms. Denies any other symptoms. Allergies: NKA Social Hx: None reported Surgical Hx: None reported PCP: Dr. Fam Past History - Medical History Allergies/Adverse Reactions: Allergies Allergy/AdvReac Type Severity Reaction Status Date / Time No Known Allergies Allergy Verified 04/19/20 09:52 Home Medications: Ambulatory Orders Atorvastatin Ca [Lipitor] 40 mg PO HS #30 tablet 10/24/19 Lisinopril [Zestril] 2.5 mg PO DAILY 10/24/19 Metoprolol Tartrate [Lopressor -] 25 mg PO BID #60 tablet 10/24/19 Nifedipine ER [Procardia XL -] 60 mg PO DAILY #30 tab.er.[id number] 10/24/19 Anemia: No Asthma: No Cancer: No Cardiac Disorders: No CVA: No COPD: No CHF: No Dementia: No Diabetes: Yes GI Disorders: No Disorders: No HTN: Yes Hypercholesterolemia: Yes Liver Disease: No Seizures: No Thyroid Disease: No Other medical history: Covid-19 09/2019 intubated, pressure ulcers - Immunization History Immunization Up to Date: Yes - Psycho-Social/Smoking History Smoking History: Never smoked Have you smoked in the past 12 months: No Information on smoking cessation initiated: No - Substance Abuse Hx (Audit-C & DAST Scrn) How often the patient has a drink containing alcohol: Never Score: In Men: 4 or > Positive; In Women: 3 or > Positive: 0 Screen Result (Pos requires Nsg. Audit-10AR): Negative In the last yr the pt used illegal drug/Rx for NonMed reason: No Score: Yes response is considered Positive: 0 Screen Result (Positive result requires Nsg. DAST-10): Negative Review of Systems - Review of Systems Able to Perform ROS?: Yes Comments:: 04/19/20 10:42 "GENERAL/CONSTITUTIONAL: +chills. No weakness. HEAD, EYES, EARS, NOSE AND THROAT: No change in vision. No ear pain or discharg e. No sore throat. CARDIOVASCULAR: No chest pain, no shortness of breath, no loss of consciousness RESPIRATORY: No cough, wheezing, or hemoptysis. GASTROINTESTINAL: + nausea, vomiting, diarrhea, epigastric pain. No constipation. GENITOURINARY: No dysuria, frequency, or change in urination. MUSCULOSKELETAL: No joint or muscle swelling or pain. No neck pain. SKIN: No rash NEUROLOGIC: No vertigo, no change in strength/sensation. ENDOCRINE: No increased thirst. No abnormal weight change. HEMATOLOGIC/LYMPHATIC: No anemia, easy bleeding, or history of blood clots. ALLERGIC/IMMUNOLOGIC: No hives or skin allergy." All Other Systems: Reviewed and Negative *Physical Exam - Vital Signs Last Vital Signs Temp Pulse Resp BP Pulse Ox 98.1 F 122 H 19 132/93 95 04/19/20 09:50 04/19/20 09:50 04/19/20 09:50 04/19/20 09:50 04/19/20 09:50 - Physical Exam "GENERAL: Awake, alert, and fully oriented, in no acute distress. HEAD: No signs of trauma EYES: PERRLA, EOMI, sclera anicteric, conjunctiva clear ENT: Auricles normal inspection, hearing grossly normal, nares patent, oropharynx clear without exudates. Moist mucosa NECK: Nontender, no stepoffs, Normal ROM, supple, no lymphadenopathy, JVD, or masses LUNGS: Breath sounds equal, clear to auscultation bilaterally. No wheezes, and no crackles HEART: Regular rate and rhythm, normal S1 and S2, no murmurs, rubs or gallops ABDOMEN: + mild epigastric TTP, normoactive bowel sounds. No guarding, no rebound. No masses EXTREMITIES: Normal range of motion, no edema. No clubbing or cyanosis. No cords, erythema, or tenderness NEUROLOGICAL: Cranial nerves II through XII intact. 5/5 strength and sensation in all extremities, Normal speech, normal gait, normal cerebellar function SKIN: Warm, Dry, normal turgor, no rashes or lesions noted." ED Treatment Course - LABORATORY CBC & Chemistry Diagram: 04/19/20 10:50 04/19/20 10:50 Medical Decision Making - Medical Decision Making 04/19/20 11:45 40 M with N+V+D. Febrile in ED. suspect viral gastroenteritis. - Labs - Tylenol, fluids, GI cocktail 04/19/20 13:20 Labs notable for hyperglycemia, elevated WBC Pt reassessed - states he feels much better after GI meds. Now feels hungry Will PO trial 04/19/20 14:50 Pt tolerated PO water and bread Pt is well appearing, with normal vitals. Clinically stable for DC at this time. I discussed the physical exam findings, ancillary test results and final diagnoses with the patient. I answered all of the patient's questions. The patient was satisfied with the care received and felt comfortable with the discharge plan and treatment plan. The patient agrees to follow up with the primary care physician within 24-72 hours. Discharge - Discharge Information Problems reviewed: Yes Clinical Impression/Diagnosis: Nausea & vomiting, Diarrhea, Fever - Follow up/Referral Referrals: Karoline Fam NP [Primary Care Provider] - - Patient Discharge Instructions Patient Printed Discharge Instructions: DI for Viral Gastroenteritis -- Adult Additional Instructions: Your symptoms are likely due to a viral infection. Drink plenty of fluids to stay hydrated. If you experience worsening vomiting, diarrhea, high fevers, symptoms lasting longer than 72 hours, or any other concerning symptoms, return to the ER immediately. Otherwise, follow up with your primary doctor within 1 week. You may need to have your diabetes medications adjusted, as your sugar was elevated today. - Post Discharge Activity Vital Signs - Vital Signs Pulse Rate: 90
[2020-04-19 12:25] LABS: BASO % 0.6 % (0-2.0); EOS % 0.7 % (0-4.5); HEMATOCRIT 40.5 % (35.4-49); HEMOGLOBIN 14.2 GM/dL (11.7-16.9); LYMPH % 6.1 % (8-40); MCHC 35.1 g/dl (32.0-35.9); MEAN CELL VOLUME 88.4 fl (80-96); MEAN PLT VOLUME 9.5 fl (7.5-11.1); MONO % 4.1 % (3.8-10.2); NEUT % 88.5 % (42.8-82.8); PLATELET COUNT 262 K/MM3 (134-434); RBC 4.58 M/mm3 (4.00-5.60); WHITE BLOOD COUNT 14.8 K/mm3 (4.0-10.0)
[2020-04-19 12:30] LABS: EPI CELLS 2 /uL (0-25.1); HYALINE CASTS 0 /uL (0-3.1); URINE APPEARANCE CLEAR; URINE BACTERIA 14 /uL (0-1359); URINE BILIRUBIN NEGATIVE (NEGATIVE); URINE COLOR YELLOW; URINE GLUCOSE (UA) 3+ (NEGATIVE); URINE KETONE NEGATIVE (NEGATIVE); URINE LEUK ESTERASE NEGATIVE (NEGATIVE); URINE NITRITE NEGATIVE (NEGATIVE); URINE PROTEIN 2+ (NEGATIVE); URINE RBC 6 /uL (0-23.9); URINE UROBILINOGEN 0.2 mg/dL (0.2-1.0); URINE WBC 2 /uL (0-25.8)
[2020-04-19 12:59] LABS: ALBUMIN 4.1 g/dl (3.4-5.0); BILIRUBIN,TOTAL 0.7 mg/dL (0.2-1); BLOOD UREA NITROGEN 21.2 mg/dL (7-18)
[2020-04-19 13:07] LABS: CALCIUM 9.1 mg/dL (8.5-10.1)
[2020-04-19 14:03] VITALS: TEMP 100.6
[2020-04-19 14:51] VITALS: BP 122/80; PULSE 100
== END 2020-04-19 15:08 | disposition home or self-care (01) ==
LOC: JER 09:46
PROC: 3E0333Z Introduction of Anti-inflammatory into Peripheral Vein, Percutaneous Approach (ICD-10-PCS; principal; 2020-04-19)
PROC: 3E033GC Introduction of Other Therapeutic Substance into Peripheral Vein, Percutaneous Approach (ICD-10-PCS; 2020-04-19)
PROC: 3E0337Z Introduction of Electrolytic and Water Balance Substance into Peripheral Vein, Percutaneous Approach (ICD-10-PCS; 2020-04-19)
DX: R11.2 Nausea with vomiting, unspecified (principal); R19.7 Diarrhea, unspecified
CPT/HCPCS: 36415; 80053; 81003; 82010; 83690; 85025; 87040; 87086; 99284-25; J0131

== ENCOUNTER 2021-01-12 21:54 | Observation (INO) | payer OTHER ==
[2021-01-12 22:07] VITALS: BMI 39.9
[2021-01-12] MEDS ORDERED: ONDANSETRON 4 MG/2 ML VIAL IVPUSH ONE (23:29)
[2021-01-12] MEDS ORDERED: SODIUM CHLORIDE 0.9% 500 ML INFUS.BAG IV ONE (23:30)
[2021-01-12] MEDS ORDERED: ONDANSETRON 4 MG/2 ML VIAL ONE (23:45)
[2021-01-12 23:55] LABS: BASO % 0.6 % (0-2.0); EOS % 0.5 % (0-4.5); HEMATOCRIT 45.5 % (35.4-49); HEMOGLOBIN 15.9 GM/dL (11.7-16.9); LYMPH % 4.5 % (8-40); MCH 30.8 pg (25.7-33.7); MCHC 34.9 g/dl (32.0-35.9); MEAN CELL VOLUME 88.3 fl (80-96); MEAN PLT VOLUME 8.3 fl (7.5-11.1); MONO % 2.5 % (3.8-10.2); NEUT % 91.9 % (42.8-82.8); PLATELET COUNT 265 10^3/uL (134-434); RBC 5.15 M/mm3 (4.00-5.60); RDW 12.9 % (11.9-15.9); WHITE BLOOD COUNT 11.3 K/mm3 (4.0-10.0)
[2021-01-13 00:12] LABS: CHLORIDE 105 mmol/L (98-107); SODIUM 136 mmol/L (136-145)
[2021-01-13 00:15] LABS: ALBUMIN 3.8 g/dl (3.4-5.0); ANION GAP 8 MMOL/L (8-16); BLOOD UREA NITROGEN 17.2 mg/dL (7-18); CO2 23 mmol/L (21-32); GLUCOSE,RANDOM 308 mg/dL (74-106); LIPASE 84 U/L (73-393); MAGNESIUM 2.1 mg/dL (1.8-2.4)
[2021-01-13 00:17] LABS: SGOT/AST 37 U/L (15-37); SGPT/ALT 67 U/L (13-61)
[2021-01-13 00:19] LABS: BILIRUBIN,TOTAL 0.9 mg/dL (0.2-1); TOT PROT 7.8 g/dl (6.4-8.2)
[2021-01-13 00:20] LABS: ALK PHOS 156 U/L (45-117)
[2021-01-13 00:50] LABS: VENOUS BASE EXCESS -6.1 mmol/L (-2-2); VENOUS O2 SATURATION 77.5 % (70-80); VENOUS PCO2 42.1 mmHg (38-52); VENOUS PH 7.296 (7.310-7.410)
[2021-01-13] MEDS ORDERED: SODIUM CHLORIDE 0.9% 500 ML INFUS.BAG IV ONE (01:48)
[2021-01-13] MEDS ORDERED: INSULIN REGULAR HUMAN 100 UNITS/ML *VIAL IVPUSH ONE (01:49)
[2021-01-13 03:27] LABS: EPI CELLS 3 /uL (0-25.1); HYALINE CASTS 0 /uL (0-3.1); URINE APPEARANCE CLEAR; URINE BACTERIA 4 /uL (0-1359); URINE BILIRUBIN NEGATIVE (NEGATIVE); URINE COLOR YELLOW; URINE GLUCOSE (UA) 3+ (NEGATIVE); URINE KETONE 1+ (NEGATIVE); URINE LEUK ESTERASE NEGATIVE (NEGATIVE); URINE NITRITE NEGATIVE (NEGATIVE); URINE PROTEIN 3+ (NEGATIVE); URINE RBC 4 /uL (0-23.9); URINE UROBILINOGEN 0.2 mg/dL (0.2-1.0); URINE WBC 3 /uL (0-25.8)
[2021-01-13 03:41] LABS: BLOOD UREA NITROGEN 15.5 mg/dL (7-18); CALCIUM 8.1 mg/dL (8.5-10.1)
[2021-01-13 04:49] LABS: CREATININE 0.8 mg/dL (0.55-1.3)
[2021-01-13 05:15] LABS: VENOUS BASE EXCESS -3.2 mmol/L (-2-2); VENOUS PCO2 47.1 mmHg (38-52); VENOUS PH 7.312 (7.310-7.410)
[2021-01-13] MEDS ORDERED: ACETAMINOPHEN 325 MG TABLET (FP) PO PRN (08:13)
[2021-01-13] MEDS ORDERED: ONDANSETRON 4 MG/2 ML VIAL IVPUSH PRN (08:13)
[2021-01-13] MEDS ORDERED: LACTATED RINGERS SOLUTION 1,000 ML IV SCH (08:15)
[2021-01-13] MEDS ORDERED: LISINOPRIL 5 MG TABLET ONE (09:28)
[2021-01-13] MEDS: INSULIN SLIDING SCALE (NOVOLOG) 1 VIAL SQ SCH ×2 (09:44→10:51)
[2021-01-13] MEDS ORDERED: LISINOPRIL 5 MG TABLET PO SCH (10:00)
[2021-01-13 10:33] VITALS: TEMP 97.8
[2021-01-13 12:00] LABS: BASO % 0.7 % (0-2.0); HEMATOCRIT 40.8 % (35.4-49); HEMOGLOBIN 14.1 GM/dL (11.7-16.9); MCH 31.1 pg (25.7-33.7); MCHC 34.6 g/dl (32.0-35.9); MEAN PLT VOLUME 8.4 fl (7.5-11.1); MONO % 4.4 % (3.8-10.2); NEUT % 75.9 % (42.8-82.8); PLATELET COUNT 243 10^3/uL (134-434); RBC 4.54 M/mm3 (4.00-5.60); RDW 12.9 % (11.9-15.9); WHITE BLOOD COUNT 6.1 K/mm3 (4.0-10.0)
[2021-01-13 13:00] VITALS: BP 140/74; PULSE 85
[2021-01-13] MEDS ORDERED: HEPARIN NA (PORCINE) 5,000 UNITS/ML 1ML VIAL SQ SCH (14:00)
[2021-01-13] MEDS ORDERED: ATORVASTATIN CA 40 MG TABLET (FP) PO SCH (22:00)
== END 2021-01-13 16:00 | disposition home or self-care (01) ==
LOC: JER 21:54 → JERBED 01-13 05:13 → UNDOADMOB 01-13 05:13 → INTOOBSV 01-13 05:13 → JERBED 01-13 10:20 → J7W 01-13 10:20
PROVIDERS: ADMIT Student in an Organized Health Care Education/Training Program; ATTEND Student in an Organized Health Care Education/Training Program
PROC: 3E0337Z Introduction of Electrolytic and Water Balance Substance into Peripheral Vein, Percutaneous Approach (ICD-10-PCS; principal; 2021-01-13)
PROC: 3E033VG Introduction of Insulin into Peripheral Vein, Percutaneous Approach (ICD-10-PCS; 2021-01-13)
DX: K52.9 Noninfective gastroenteritis and colitis, unspecified (principal); E11.10 Type 2 diabetes mellitus with ketoacidosis without coma; R11.2 Nausea with vomiting, unspecified; R10.13 Epigastric pain; I10 Essential (primary) hypertension; Z79.4 Long term (current) use of insulin; Z68.39 Body mass index [BMI] 39.0-39.9, adult; E66.9 Obesity, unspecified
CPT/HCPCS: 36415; 71045-TC-FY; 80048; 80053; 81003; 82010; 82550; 82803; 82962; 83036; 83605; 83690; 83735; 84100; 84443; 84484; 85025; 85730; 93005; 93010; 96361; 96374; 99285-25; C9803; G0378; U0003; U0005

== ENCOUNTER 2021-11-08 15:46 | Inpatient (IN) | payer OTHER ==
[2021-11-08] MEDS ORDERED: ONDANSETRON 4 MG/2 ML VIAL ONE ×2 (17:27→19:57)
[2021-11-08] MEDS ORDERED: ONDANSETRON 4 MG/2 ML VIAL IVPUSH ONE ×2 (17:27→19:57)
[2021-11-08] MEDS ORDERED: FAMOTIDINE 20 MG/50 ML IVPB 20 MG/50 ML MG IVPB ONE (17:44)
[2021-11-08] MEDS ORDERED: SODIUM CHLORIDE 0.9% 500 ML INFUS.BAG IV ONE ×2 (17:44→18:04)
[2021-11-08] MEDS ORDERED: FAMOTIDINE 10 MG/ML VIAL IVPB ONE (17:55)
[2021-11-08 17:56] LABS: BASO % 0.4 % (0-2.0); EOS % 0.7 % (0-4.5); HEMATOCRIT 45.2 % (35.4-49); MCH 31.6 pg (25.7-33.7); MCHC 35.3 g/dl (32.0-35.9); MEAN CELL VOLUME 89.5 fl (80-96); MEAN PLT VOLUME 8.6 fl (7.5-11.1); MONO % 4.4 % (3.8-10.2); NEUT % 80.5 % (42.8-82.8); PLATELET COUNT 294 10^3/uL (134-434); RBC 5.05 M/mm3 (4.00-5.60); RDW 13.1 % (11.9-15.9); WHITE BLOOD COUNT 13.7 K/mm3 (4.0-10.0)
[2021-11-08] MEDS ORDERED: ACETAMINOPHEN 1000 MG/100 ML BAG IVPB ONE (17:59)
[2021-11-08] MEDS ORDERED: ACETAMINOPHEN INJECTION 100 ML IVPB ONE (18:00)
[2021-11-08 18:13] LABS: VENOUS BASE EXCESS -3.6 mmol/L (-2-2); VENOUS PCO2 42.9 mmHg (38-52); VENOUS PH 7.333 (7.310-7.410)
[2021-11-08 18:38] LABS: ALBUMIN 3.8 g/dl (3.4-5.0); BLOOD UREA NITROGEN 20.4 mg/dL (7-18); MAGNESIUM 1.9 mg/dL (1.8-2.4)
[2021-11-08 18:41] LABS: CREATININE 1.1 mg/dL (0.55-1.3); PHOSPHOROUS 3.2 mg/dL (2.5-4.9)
[2021-11-08 18:42] LABS: BILIRUBIN,TOTAL 0.8 mg/dL (0.2-1); TOT PROT 7.5 g/dl (6.4-8.2)
[2021-11-08] MEDS ORDERED: morphine CARPU-JECT 2 MG/1 ML DISP.SYRIN IVPUSH ONE (19:25)
[2021-11-08] MEDS ORDERED: CEFTRIAXONE 1 GM in DEXTROSE 5%-WATER - 50 ML IVPB ONE (21:04)
[2021-11-08] MEDS ORDERED: morphine CARPU-JECT 4 MG/1 ML DISP.SYRIN IVPUSH ONE (21:05)
[2021-11-08] MEDS ORDERED: LACTATED RINGERS SOLUTION 1,000 ML/1,000 ML INFUS.BAG IV SCH (21:15)
[2021-11-08] MEDS ORDERED: morphine SULFATE 4 MG/ML VIAL ONE (21:34)
[2021-11-08] MEDS ORDERED: CEFTRIAXONE 1 GM/50 ML BAG ONE (21:35)
[2021-11-08] MEDS ORDERED: ONDANSETRON 4 MG/2 ML VIAL IVPUSH PRN (21:45)
[2021-11-08] MEDS ORDERED: ACETAMINOPHEN 1000 MG/100 ML BAG IVPB PRN (21:45)
[2021-11-08] MEDS ORDERED: INSULIN (NOVOLOG) ASPART 100 UNITS/ML 10ML VIAL SQ ONE (21:49)
[2021-11-08] MEDS: LACTATED RINGERS SOLUTION 1,000 ML IV SCH (23:00)
[2021-11-08] MEDS: INSULIN SLIDING SCALE (NOVOLOG) 1 VIAL SQ SCH (23:01)
[2021-11-09 01:14] VITALS: BMI 41.6
[2021-11-09] MEDS: morphine SULFATE 4 MG/ML VIAL IVPUSH PRN ×2 (05:11→09:18)
[2021-11-09 06:06] LABS: EPI CELLS 3 /uL (0-25.1); HYALINE CASTS 1 /uL (0-3.1); URINE APPEARANCE CLEAR; URINE BACTERIA 2 /uL (0-1359); URINE BILIRUBIN NEGATIVE (NEGATIVE); URINE COLOR YELLOW; URINE GLUCOSE (UA) 3+ (NEGATIVE); URINE KETONE 2+ (NEGATIVE); URINE LEUK ESTERASE NEGATIVE (NEGATIVE); URINE NITRITE NEGATIVE (NEGATIVE); URINE PROTEIN 3+ (NEGATIVE); URINE RBC 5 /uL (0-23.9); URINE UROBILINOGEN 0.2 mg/dL (0.2-1.0); URINE WBC 2 /uL (0-25.8)
[2021-11-09] MEDS: INSULIN SLIDING SCALE (NOVOLOG) 1 VIAL SQ SCH ×3 (06:53→17:04)
[2021-11-09 08:38] LABS: BASO % 0.2 % (0-2.0); HEMATOCRIT 41.4 % (35.4-49); HEMOGLOBIN 14.7 GM/dL (11.7-16.9); LYMPH % 7.4 % (8-40); MCH 31.7 pg (25.7-33.7); MCHC 35.5 g/dl (32.0-35.9); MEAN CELL VOLUME 89.3 fl (80-96); MEAN PLT VOLUME 8.4 fl (7.5-11.1); MONO % 5.3 % (3.8-10.2); NEUT % 87.1 % (42.8-82.8); PLATELET COUNT 262 10^3/uL (134-434); RBC 4.63 M/mm3 (4.00-5.60); RDW 13.3 % (11.9-15.9); WHITE BLOOD COUNT 13.5 K/mm3 (4.0-10.0)
[2021-11-09 08:52] LABS: INR 1.07 (0.83-1.09); PROTHROMBIN TIME (PATIENT) 12.3 SEC (9.7-13.0)
[2021-11-09 09:06] LABS: ALBUMIN 3.2 g/dl (3.4-5.0); BLOOD UREA NITROGEN 14.5 mg/dL (7-18); CALCIUM 8.3 mg/dL (8.5-10.1); MAGNESIUM 1.7 mg/dL (1.8-2.4)
[2021-11-09 09:08] LABS: PHOSPHOROUS 3.6 mg/dL (2.5-4.9)
[2021-11-09 09:10] LABS: BILIRUBIN,TOTAL 1.1 mg/dL (0.2-1); TOT PROT 6.6 g/dl (6.4-8.2)
[2021-11-09] MEDS ORDERED: GEMFIBROZIL 600 MG TABLET (FP) PO SCH (10:00)
[2021-11-09] MEDS ORDERED: LISINOPRIL 10 MG TABLET PO SCH (10:00)
[2021-11-09] MEDS ORDERED: FAMOTIDINE 20 MG TABLET PO SCH (10:00)
[2021-11-09] MEDS ORDERED: MIDAZOLAM HCL 2 MG/2 ML SINGLE DOSE VIAL ONE (15:48)
[2021-11-09] MEDS ORDERED: LIDOCAINE HCL/PF 2% SDV 5ML VIAL ONE (15:48)
[2021-11-09] MEDS ORDERED: PROPOFOL 20 ML ONE ×2 (15:48→18:45)
[2021-11-09] MEDS ORDERED: ONDANSETRON 4 MG/2 ML VIAL ONE ×3 (15:48→18:52)
[2021-11-09] MEDS ORDERED: ROCURONIUM BROMIDE 50 MG/5 ML SYRINGE ONE (15:48)
[2021-11-09] MEDS ORDERED: DEXAMETHASONE SOD PHOSPHATE 4 MG/1 ML VIAL ONE ×2 (15:48→17:59)
[2021-11-09] MEDS ORDERED: PIPERACILLIN/TAZOBACTAM 3.375 GM VIAL IVPB ONE ×2 (18:30→18:33)
[2021-11-09] MEDS ORDERED: NEOSTIGMINE METHYLSULFATE 0.5 MG/1 ML - 10 ML MDV ONE (18:49)
[2021-11-09] MEDS ORDERED: GLYCOPYRROLATE 0.2 MG/1 ML VIAL ONE (18:51)
[2021-11-09] MEDS ORDERED: oxyCODONE HCL 5 MG TABLET PO PRN (19:23)
[2021-11-09] MEDS ORDERED: LACTATED RINGERS SOLUTION 1,000 ML IV SCH (19:30)
[2021-11-09] MEDS ORDERED: morphine SULFATE 4 MG/ML VIAL IVPUSH PRN (19:36)
[2021-11-09] MEDS ORDERED: ONDANSETRON 4 MG/2 ML VIAL IVPUSH PRN (19:42)
[2021-11-09] MEDS: PIPERACILLIN/TAZOB 3.375 GM 3.375 GM in DEXTROSE 5%-WATER - 50 ML IVPB SCH ×2 (19:45→20:30)
[2021-11-09] MEDS ORDERED: KETOROLAC TROMETHAMINE 30 MG/1 ML VIAL ONE (19:56)
[2021-11-09] MEDS ORDERED: ACETAMINOPHEN INJECTION 100 ML IVPB ONE (19:56)
[2021-11-09] MEDS: KETOROLAC TROMETHAMINE 30 MG/1 ML VIAL IVPUSH SCH ×2 (20:00→20:57)
[2021-11-09] MEDS ORDERED: ACETAMINOPHEN 1000 MG/100 ML BAG IVPB ONE (20:00)
[2021-11-09] MEDS: ACETAMINOPHEN 1000 MG/100 ML BAG IVPB ONE ×2 (20:00→20:57)
[2021-11-09] MEDS ORDERED: KETOROLAC TROMETHAMINE 30 MG/1 ML VIAL IVPUSH ONE (20:00)
[2021-11-09] MEDS ORDERED: HYDROmorphone HCl 2 MG/ML VIAL ONE (20:39)
[2021-11-09] MEDS ORDERED: HYDROmorphone HCl 2 MG/ML VIAL IVPUSH ONE (20:40)
[2021-11-09] MEDS ORDERED: HYDROmorphone HCl 2 MG/ML VIAL IVPUSH PRN (20:40)
[2021-11-09] MEDS: GEMFIBROZIL 600 MG TABLET (FP) PO SCH (21:39)
[2021-11-09] MEDS: LACTATED RINGERS SOLUTION 1,000 ML IV SCH ×2 (21:40)
[2021-11-09] MEDS: ENOXAPARIN NA (PORCINE) 40 MG/0.4 ML DISP.SYRIN SQ SCH (21:49)
[2021-11-09] MEDS ORDERED: INSULIN (LEVEMIR) 100 UNITS/ML UNITS SQ SCH (22:00)
[2021-11-10] MEDS ORDERED: DEXTROSE 5%-WATER - 50 ML IVPB ONE ×2 (01:25→09:11)
[2021-11-10] MEDS ORDERED: PIPERACILLIN/TAZOBACTAM 3.375 GM VIAL IVPB ONE ×2 (01:25→09:11)
[2021-11-10] MEDS: PIPERACILLIN/TAZOB 3.375 GM 3.375 GM in DEXTROSE 5%-WATER - 50 ML IVPB SCH ×2 (01:28→09:12)
[2021-11-10] MEDS: KETOROLAC TROMETHAMINE 30 MG/1 ML VIAL IVPUSH SCH ×3 (01:29→14:26)
[2021-11-10] MEDS: LACTATED RINGERS SOLUTION 1,000 ML IV SCH (06:03)
[2021-11-10] MEDS: GEMFIBROZIL 600 MG TABLET (FP) PO SCH ×2 (06:16→17:00)
[2021-11-10] MEDS: INSULIN SLIDING SCALE (NOVOLOG) 1 VIAL SQ SCH ×3 (06:16→16:57)
[2021-11-10] MEDS: ENOXAPARIN NA (PORCINE) 40 MG/0.4 ML DISP.SYRIN SQ SCH (09:12)
[2021-11-10] MEDS ORDERED: FAMOTIDINE 20 MG TABLET PO SCH (10:00)
[2021-11-10] MEDS ORDERED: LISINOPRIL 10 MG TABLET PO SCH (10:00)
[2021-11-10 14:43] VITALS: BP 121/71; PULSE 98; TEMP 98.7
== END 2021-11-10 18:21 | disposition home or self-care (01) | DRG 225 ==
LOC: JER 15:46 → JERBED 21:16 → J6S 11-09 00:23
PROVIDERS: ADMIT Hospitalist; ATTEND Internal Medicine
PROC: 0DTJ4ZZ Resection of Appendix, Percutaneous Endoscopic Approach (ICD-10-PCS; principal; 2021-11-09 16:00)
DX: K35.80 Unspecified acute appendicitis (principal); I10 Essential (primary) hypertension; E11.9 Type 2 diabetes mellitus without complications; E78.5 Hyperlipidemia, unspecified; E66.9 Obesity, unspecified; Z68.41 Body mass index [BMI] 40.0-44.9, adult; Z91.14 Patient's other noncompliance with medication regimen; R10.31 Right lower quadrant pain
CPT/HCPCS: 36415; 74177-TC; 80053; 81003; 82010; 82803; 82962; 83036; 83735; 84100; 84484; 85025; 85610; 86850; 86900; 86901; 87086; 88304-TC; 93005; 93010; 94760; 99285-25; C9803-CS; Q9967; U0003; U0005

== ENCOUNTER 2023-06-06 19:25 | Emergency (ER) | payer OTHER ==
[2023-06-06] MEDS ORDERED: FAMOTIDINE 20 MG/50 ML IVPB 20 MG/50 ML MG IVPB ONE ×2 (19:52→20:10)
[2023-06-06] MEDS ORDERED: SODIUM CHLORIDE 0.9% 500 ML INFUS.BAG IV ONE (19:52)
[2023-06-06] MEDS ORDERED: ONDANSETRON 4 MG/2 ML VIAL IVPUSH ONE (19:52)
[2023-06-06] MEDS ORDERED: MAG HYDROX/AL HYDROX/SIMETH 30 ML UNIT-DOSE CUP PO ONE (19:52)
[2023-06-06] MEDS ORDERED: MAG HYDROX/AL HYDROX/SIMETH 30 ML UNIT-DOSE CUP ONE (20:09)
[2023-06-06] MEDS ORDERED: ONDANSETRON 4 MG/2 ML VIAL ONE (20:09)
[2023-06-06 20:37] VITALS: TEMP 98.3; BMI 40.7
[2023-06-06 20:48] LABS: EOS % 5.6 % (0-4.5); HEMATOCRIT 46.2 % (35.4-49); HEMOGLOBIN 16.5 GM/dL (11.7-16.9); LYMPH % 25.9 % (8-40); MCH 31.3 pg (25.7-33.7); MCHC 35.7 g/dl (32.0-35.9); MEAN CELL VOLUME 87.8 fl (80-96); MEAN PLT VOLUME 8.5 fl (7.5-11.1); MONO % 7.8 % (3.8-10.2); NEUT % 59.7 % (42.8-82.8); PLATELET COUNT 303 10^3/uL (134-434); RBC 5.26 M/mm3 (4.00-5.60); RDW 12.7 % (11.9-15.9); WHITE BLOOD COUNT 5.8 K/mm3 (4.0-10.0)
[2023-06-06 20:58] LABS: INR 0.89 (0.83-1.09); PROTHROMBIN TIME (PATIENT) 10.3 SEC (9.7-13.0)
[2023-06-06 21:28] LABS: POTASSIUM 4.4 mmol/L (3.5-5.1)
[2023-06-06 21:30] LABS: CALCIUM 8.9 mg/dL (8.5-10.1)
[2023-06-06 21:31] LABS: ALBUMIN 3.2 g/dl (3.4-5.0); BLOOD UREA NITROGEN 19.2 mg/dL (7-18); MAGNESIUM 2.1 mg/dL (1.8-2.4)
[2023-06-06 21:34] LABS: CREATININE 1.1 mg/dL (0.55-1.3)
[2023-06-06 21:35] LABS: BILIRUBIN,TOTAL 0.4 mg/dL (0.2-1)
[2023-06-06] MEDS ORDERED: IBUPROFEN 400 MG TABLET (FP) PO ONE ×2 (22:05→22:31)
[2023-06-06 22:58] VITALS: BP 153/105; PULSE 94; RESP 17
[2023-06-06] MEDS ORDERED: LISINOPRIL 10 MG TABLET PO ONE (23:01)
[2023-06-06] MEDS ORDERED: metFORMIN HCL 500 MG TABLET (FP) PO ONE (23:03)
[2023-06-06] MEDS ORDERED: LACTULOSE 20 GM/30 ML UDC (FOR ORAL USE ONLY) PO ONE (23:03)
[2023-06-06] MEDS ORDERED: LACTULOSE 20 GM/30 ML UDC (FOR ORAL USE ONLY) ONE (23:10)
[2023-06-06] MEDS ORDERED: metFORMIN HCL 500 MG TABLET (FP) ONE (23:10)
[2023-06-06] MEDS ORDERED: LISINOPRIL 10 MG TABLET ONE (23:11)
== END 2023-06-07 00:27 | disposition home or self-care (01) ==
LOC: JER 19:25
PROC: 3E033GC Introduction of Other Therapeutic Substance into Peripheral Vein, Percutaneous Approach (ICD-10-PCS; principal; 2023-06-06)
PROC: 3E033GC Introduction of Other Therapeutic Substance into Peripheral Vein, Percutaneous Approach (ICD-10-PCS; 2023-06-06)
DX: I10 Essential (primary) hypertension (principal); R51.9 Headache, unspecified; R07.9 Chest pain, unspecified; R11.0 Nausea; R53.81 Other malaise; R68.83 Chills (without fever); R00.0 Tachycardia, unspecified; J02.9 Acute pharyngitis, unspecified; K59.00 Constipation, unspecified; Z20.822 Contact with and (suspected) exposure to COVID-19
CPT/HCPCS: 0241U-QW; 36415; 71045-TC-FY; 80053; 82962; 83690; 83735; 84484; 85025; 85610; 85730; 93005; 93010; 99285-25

== ENCOUNTER 2024-01-23 12:39 | Emergency (ER) | payer OTHER ==
[2024-01-23 12:48] VITALS: RESP 18; BMI 38.9
[2024-01-23] MEDS ORDERED: FAMOTIDINE 20 MG/50 ML IVPB 20 MG/50 ML MG IVPB ONE (13:33)
[2024-01-23] MEDS: SODIUM CHLORIDE 0.9% 500 ML INFUS.BAG IV ONE (13:57)
[2024-01-23] MEDS: FAMOTIDINE 20 MG/50 ML IVPB 20 MG/50 ML MG IVPB ONE (13:58)
[2024-01-23 14:20] LABS: BASO % 1.2 % (0-2.0); EOS % 2.4 % (0-4.5); HEMATOCRIT 44.9 % (35.4-49); HEMOGLOBIN 15.9 GM/dL (11.7-16.9); LYMPH % 28.1 % (8-40); MCH 31.8 pg (25.7-33.7); MCHC 35.4 g/dl (32.0-35.9); MEAN CELL VOLUME 89.8 fl (80-96); MONO % 5.6 % (3.8-10.2); NEUT % 62.7 % (42.8-82.8); PLATELET COUNT 301 10^3/uL (134-434); RDW 13.4 % (11.9-15.9)
[2024-01-23 14:27] LABS: PH,URINE 5.5 (5.0-8.0); URINE APPEARANCE CLEAR; URINE BILIRUBIN NEGATIVE (NEGATIVE); URINE COLOR YELLOW; URINE GLUCOSE (UA) 4+ (NEGATIVE); URINE KETONE TRACE (NEGATIVE)
[2024-01-23 14:28] LABS: URINE LEUK ESTERASE NEGATIVE (NEGATIVE); URINE NITRITE NEGATIVE (NEGATIVE); URINE PROTEIN 1+ (NEGATIVE)
[2024-01-23 14:42] LABS: POTASSIUM 4.5 mmol/L (3.5-5.1)
[2024-01-23 14:45] LABS: BLOOD UREA NITROGEN 22.6 mg/dL (7-18); CALCIUM 9.6 mg/dL (8.5-10.1)
[2024-01-23 14:48] LABS: CREATININE 1.2 mg/dL (0.55-1.3)
[2024-01-23 14:49] LABS: BILIRUBIN,TOTAL 0.7 mg/dL (0.2-1)
[2024-01-23 14:50] LABS: TOT PROT 7.6 g/dl (6.4-8.2)
[2024-01-23 16:37] VITALS: BP 118/89; PULSE 93; TEMP 98.1
== END 2024-01-23 16:50 | disposition home or self-care (01) ==
LOC: JER 12:39
PROC: 3E033GC Introduction of Other Therapeutic Substance into Peripheral Vein, Percutaneous Approach (ICD-10-PCS; principal; 2024-01-23)
DX: R10.12 Left upper quadrant pain (principal); R11.0 Nausea; R20.8 Other disturbances of skin sensation; E86.0 Dehydration
CPT/HCPCS: 36415; 80053; 81003; 83690; 85025; 87086; 99284-25

== ENCOUNTER 2024-04-29 13:08 | Emergency (ER) | payer OTHER ==
[2024-04-29 13:26] VITALS: BP 134/97; PULSE 96; RESP 20; TEMP 98.4; BMI 38.6
[2024-04-29 14:58] LABS: BASO % 1.5 % (0-2.0); EOS % 3.4 % (0-4.5); HEMATOCRIT 45.8 % (35.4-49); HEMOGLOBIN 15.8 GM/dL (11.7-16.9); LYMPH % 30.4 % (8-40); MCH 31.5 pg (25.7-33.7); MCHC 34.5 g/dl (32.0-35.9); MEAN CELL VOLUME 91.3 fl (80-96); MEAN PLT VOLUME 8.8 fl (7.5-11.1); MONO % 6.3 % (3.8-10.2); NEUT % 58.4 % (42.8-82.8); PLATELET COUNT 313 10^3/uL (134-434); RBC 5.02 M/mm3 (4.00-5.60); RDW 13.4 % (11.9-15.9)
[2024-04-29 15:15] LABS: POTASSIUM 4.7 mmol/L (3.5-5.1)
[2024-04-29 15:17] LABS: CALCIUM 9.6 mg/dL (8.5-10.1)
[2024-04-29 15:18] LABS: ALBUMIN 3.9 g/dl (3.4-5.0)
[2024-04-29 15:22] LABS: BILIRUBIN,TOTAL 0.7 mg/dL (0.2-1); CREATININE 1.1 mg/dL (0.55-1.3); TOT PROT 7.5 g/dl (6.4-8.2)
[2024-04-29 15:36] LABS: EPI CELLS 5 /uL (0-25.1); HYALINE CASTS 0 /uL (0-3.1); URINE APPEARANCE CLEAR; URINE BACTERIA 2 /uL (0-1359); URINE BILIRUBIN NEGATIVE (NEGATIVE); URINE COLOR YELLOW; URINE GLUCOSE (UA) TRACE (NEGATIVE); URINE KETONE TRACE (NEGATIVE); URINE LEUK ESTERASE NEGATIVE (NEGATIVE); URINE NITRITE NEGATIVE (NEGATIVE); URINE PROTEIN 4+ (NEGATIVE); URINE RBC 8 /uL (0-23.9); URINE UROBILINOGEN 0.2 mg/dL (0.2-1.0); URINE WBC 5 /uL (0-25.8)
== END 2024-04-29 18:46 | disposition home or self-care (01) ==
LOC: JER 13:08
DX: R10.32 Left lower quadrant pain (principal); R11.0 Nausea
CPT/HCPCS: 36415; 74177-TC; 80053; 81003; 83690; 85025; 87086; 99285-25